=== PATIENT | male | born 1950 | race Caucasian/White ===

== ENCOUNTER → 2018-07-10 10:48 | Outpatient (CLI) | payer MEDICARE, SELFPAY ==
[2018-07-10 11:09] LABS: Absolute Lymphocyte Count 1.06 X10^3/ul (0.83-4.51); Absolute Neutrophil Count 4.6 X10^3/uL (2.0-7.7); Basophil# 0.02 X10^3/uL; Basophil% 0.3 % (0-1); Eosinophil# 0.13 X10^3/uL; Eosinophils% 2.1 % (0-5); Hematocrit 47.1 % (40-54); Hemoglobin 16.2 g/dl (13.0-16.5); Lymphocyte # 1.06 X10^3/ul (4.0); Lymphocyte % 16.9 % (19-41); Mean Corp Hgb Conc 34.4 g/gl (32-36); Mean Corpuscular Hgb 30.5 pg (27.0-32.0); Mean Corpuscular Volume 88.5 fL (80-94); Monocyte# 0.51 X10^3/uL; Monocyte% 8.1 % (0-10); Neutrophil # 4.56 X10^3/uL (2.7-7.7); Neutrophil % 72.4 % (47-70); Platelet Count 184 K/mm3 (150-450); RBC Distribution Width CV 13.3 % (11.6-14.6); Red Blood Count 5.32 M/mm3 (4.6-6.2); White Blood Count 6.3 K/mm3 (4.4-11.0)
[2018-07-10 11:10] LABS: POSITIVE COUNT NO; POSITIVE DIFFERENTIAL NO; POSITIVE MORPHOLOGY NO
[2018-07-12 16:12] LABS: Alternaria alternata <0.10 kU/L (Class 0); Bermuda Grass 0.14 kU/L (Class 0/I); Cat Hair/Dander, Standard <0.10 kU/L (Class 0); D farinae Mite <0.10 kU/L (Class 0); D pteronyssinus <0.10 kU/L (Class 0); Dog Epithelia <0.10 kU/L (Class 0); Elm, American White 0.13 kU/L (Class 0/I); Oak, White 0.12 kU/L (Class 0/I); Plantain, English 0.16 kU/L (Class 0/I); Ragweed, Short/Common 0.12 kU/L (Class 0/I)
[2018-07-13 10:45] LABS: Immunoglobulin E 68 IU/mL (0-100)
[2018-07-13 11:18] LABS: Mouse Urine <0.10 kU/L (Class 0)
== END ==
PROVIDERS: Family Provider Family Medicine; PCP Family Medicine; Visit Provider Nurse Practitioner Acute Care
DX: E78.5 Hyperlipidemia, unspecified (principal); J45.40 Moderate persistent asthma, uncomplicated
CPT/HCPCS: 36415; 82785; 85025; 86003

== ENCOUNTER → 2020-02-08 08:10 | Outpatient (CLI) | payer MEDICARE, SELFPAY ==
[2019-12-12 07:08] VITALS: BMI 25.0
[2020-02-08 09:00] LABS: AST(SGOT) 22 U/L (15-37); Alanine Aminotransfer ALT/SGPT 31 U/L (16-61); Albumin, Serum 3.8 g/dL (3.2-5.0); Alkaline Phosphatase 100 U/L (45-117); Bilirubin, Direct 0.23 mg/dL (0.00-0.30); Cholesterol 208 mg/dL (200); Globulin 3.7 g/dL (2.2-4.2); High Density Lipoprotein 51 mg/dL; Protein, Total 7.5 g/dL (6.4-8.2); Triglycerides 118 mg/dL; Very Low Density Lipoprotein 24 mg/dL (5-40)
== END ==
PROVIDERS: PCP Family Medicine; Referring Provider Internal Medicine Cardiovascular Disease; Visit Provider Internal Medicine Cardiovascular Disease
DX: E78.5 Hyperlipidemia, unspecified (principal)
CPT/HCPCS: 36415; 80061; 80076

== ENCOUNTER 2020-12-21 03:51 | Emergency (ER) | payer MEDICARE, SELFPAY ==
[2020-08-19 08:54] VITALS: BMI 25.7
[2020-12-21 03:53] VITALS: BP 153/107; PULSE 75; RESP 16; TEMP 36.3; O2SAT 98; BMI 26.2
--- NOTE | 2020-12-21 03:55 | ED.RN ---
CALLED FOR EKG PER RN REQUEST, PULLED OLD EKGS FOR
--- NOTE | 2020-12-21 04:07 | EKG12_ITS ---
Test Reason : CP Blood Pressure : / mmHG Vent. Rate : 071 BPM Atrial Rate : 071 BPM P-R Int : 168 ms QRS Dur : 118 ms QT Int : 402 ms P-R-T Axes : 026 -70 057 degrees QTc Int : 436 ms Normal sinus rhythm Left axis deviation Incomplete left bundle branch block Abnormal ECG Confirmed by VIMAL LAWSON, SVETLANA ([id number]), dictionary editor TARYN CUELLO ([id number]) on 12/23/2020 10:37:11 AM Referred By: MAGGIE Confirmed By:SVETLANA CELIS MD
--- NOTE | 2020-12-21 04:07 | ED.DCSUM_ITS ---
History of Present Illness Chief Complaint: Chest Pain Informant: Patient Narrative: Presents with left-sided chest discomfort. He stated approximately 2 days ago he had a jolt of left-sided sharp chest pain. It lasted just for second and went away. He has felt slightly weak since. He was laying in bed tonight and worried about this therefore came in for further evaluation. In 2017 he was evaluated for shortness of breath in our emergency department. He was admitted to the hospital and had a negative stress test and lab work. There is no evidence of heart related disease. He stated he does have asthma. 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 Has a history of high blood pressure. He stated he has borderline high cholesterol. He smoked cigarettes for 5 years when he was in college otherwise has not smoked since. He does not have any discomfort at this time. He can pinpoint the left side of his chest wall where if he pushes on it it is sore. No PE risk factors. - Past Medical History (1) Sinus congestion Status: Acute (2) Asthma, moderate persistent Status: Chronic (3) Dyspnea on exertion Status: Chronic (4) [place]' lung disease Status: Chronic Comment: in the (5) Hyperlipidemia Status: Chronic (6) Hypertension Status: Chronic (7) Left inguinal hernia Status: Chronic (8) Shortness of breath Status: Chronic (9) Asthma Status: Suspected Past Medical History - Allergies and Home Meds Allergies/Adverse Reactions: Allergies ampicillin Allergy (Mild, Verified 12/21/20 03:58) erythromycin base Allergy (Mild, Verified 12/21/20 03:58) montelukast [From Singulair] Adverse Reaction (Verified 12/21/20 03:58) nightmares Primary Care Physician: Sim Weir MD [Primary Care Provider] - Prior records reviewed: Yes Past Medical History: - - See problem list Surgical History: no surgical history Lives: With Family Smoking Status: Former smoker Alcohol: None Drugs: None - Family History Paternal Family History: Family History (Last Reviewed 06/12/20 @ 07:52 by Meka Jang LIEUTENANT GENERAL, LIE[employer]ENANT GENERAL-C) Father CAD (coronary artery disease) Myocardial infarction, Onset Age: 65 Mother COPD (chronic obstructive pulmonary disease) Uncle Sudden cardiac Family History: Reports: Heart Disease - in his father and uncle Maternal Family History: Family History (Last Reviewed 06/12/20 @ 07:52 by Meka Jang [employer]NT [employer]AL, LIE[employer]ENANT GENERAL-C) Father CAD (coronary artery disease) Myocardial infarction, Onset Age: 65 Mother COPD (chronic obstructive pulmonary disease) Uncle Sudden cardiac Family History: Reports: COPD Review of Systems General: Denies: Chills, Fever, Sweats Eyes: Denies: Visual changes - bilaterally, Diplopia ENT: Denies: Rhinorrhea, Sore throat Cardiovascular: Reports: Chest pain. Denies: Palpitations Respiratory: Denies: Dyspnea, Cough, Dyspnea on exertion Gastrointestinal: Denies: Abdominal pain, Nausea, Vomiting, Diarrhea, Melena, Hematochezia Genitourinary: Denies: Dysuria, Hematuria, Frequency Musculoskeletal: Denies: Back pain, Extremity Pain Skin: Denies: Rash, Wounds Neurological: Denies: Headache, Weakness, Numbness Physical Exam Vital Signs/Narrative: Vital Signs Temp Pulse Resp BP Pulse Ox 12/21/20 03:53 97.4 F L 75 16 153/107 H 98 General: Well nourished, Well developed, No Acute Distress Head: Normocephalic, Atraumatic Eyes: Perrl, EOMI ENT: Moist mucous membranes, No rhinorrhea Neck: Supple, Nontender Cardiovascular: Regular rate, Regular rhythm, No murmurs Respiratory: No distress, CTA bilaterally, Chest nontender Abdomen: Soft, Nontender, Nondistended, Normal bowel sounds Back: Nontender, Normal Inspection Extremities: Nontender, No edema Skin: Normal color, No rash Neurological: Alert, Oriented x3, Cranial nerves II-XII grossly intact, Normal Strength, Normal Sensation Psychological: Normal affect, Normal Mood Diagnostic/Tx/Re-eval - Medical Decision Making Patient resting comfortably. EKG reviewed by myself shows sinus rhythm at a rate of 71 with incomplete left bundle branch block. Unchanged from prior EKGs. No STEMI. At this time the patient has no symptoms. Lab work and chest x-ray obtained. I will hold aspirin at this time. Lab work shows nothing acute including negative troponin. CBC BMP showed no gross significant abnormalities. My interpretation of the chest x-ray shows chronic changes with nothing acute. Radiologist agrees with this interpretation.. I can reproduce pinpoint discomfort in the left chest. He has had this discomfort for several days now with a negative troponin. I offered admission and stress test for the patient he refuses. 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 He will also follow-up with his family doctor. I think this is most likely musculoskeletal. He had a jolt of pain in his left chest followed by pinpoint discomfort. He worked all day yesterday with minimal symptoms. I feel he can follow-up. heart score is 3 which puts him in the low risk category. ED Disposition - Plan for ED Patient: Disposition: Home or Assisted Living Diagnosis: Chest pain at rest Instructions: ED Chest Pain, Uncertain Cause Referrals: Sim Weir MD [Primary Care Provider] -
[2020-12-21 04:15] LABS: Absolute Lymphocyte Count 1.29 X10^3/uL (0.83-4.51); Absolute Neutrophil Count 3.7 X10^3/uL (2.0-7.7); Basophil# 0.04 X10^3/uL; Basophil% 0.7 % (0-1); Eosinophil# 0.14 X10^3/uL; Eosinophils% 2.4 % (0-5); Hematocrit 50.7 % (40-54); Lymphocyte # 1.29 X10^3/ul (4.0); Lymphocyte % 22.3 % (19-41); Mean Corp Hgb Conc 33.5 g/dL (32-36); Mean Corpuscular Hgb 30.2 pg (27.0-32.0); Mean Corpuscular Volume 90.1 fL (80-94); Mean Platelet Vol. 8.7 fl (6.2-12.0); Monocyte# 0.61 X10^3/uL; Monocyte% 10.6 % (0-10); NRBC Flagged by Analyzer 0 % (0-5); Neutrophil # 3.68 X10^3/uL (2.7-7.7); Neutrophil % 63.7 % (47-70); Platelet Count 214 K/mm3 (150-450); RBC Distribution Width CV 12.8 % (11.6-14.6); RBC Distribution Width SD 41.9 fl (35.1-43.9); Red Blood Count 5.63 M/mm3 (4.6-6.2); White Blood Count 5.8 K/mm3 (4.4-11.0)
--- NOTE | 2020-12-21 04:15 | RAD_ITS ---
HISTORY: left sided chest pain started 2 days ago. EXAM: XR Chest 1 View COMPARISON: August 23, 2017 FINDINGS: LINES/DEVICES: None. LUNGS: There are chronic interstitial changes. No pneumothorax. No consolidation or effusion. MEDIASTINUM AND CARDIOVASCULAR STRUCTURES: Cardiac silhouette not enlarged. Central airways and mediastinal contour are unremarkable. Athersclerotic plaque within the aortic arch. BONES AND SOFT TISSUES: Thoracic spondylosis. RAD/Chest 1 View (Portable) IMPRESSION: Chronic interestitial changes. No radiographic evidence of acute cardiopulmonary disease. at [id number] Reported and signed by: Ashu Mercer MD Electronically Signed: Ashu Mercer MD at 4:28 EST Tel , Service support ,
[2020-12-21 04:32] LABS: Anion Gap 3 (5-15); BUN 24 mg/dL (7-18); BUN/Creat Ratio 20.5 RATIO (10-20); Calcium,Total 8.5 mg/dL (8.5-10.1); Chloride 109 mmol/L (98-107); Creatinine, Serum 1.17 mg/dL (0.70-1.30); EST Glomerular Filtration Rate 65 mL/min (>60); Est Glom Filt Rate - Afr Amer 79 mL/min (>60); Glucose 101 mg/dL (74-106); Potassium 3.9 mmol/L (3.5-5.1); Sodium Level 140 mmol/L (136-145)
[2020-12-21 05:03] VITALS: BP 161/95; PULSE 69; RESP 19; O2SAT 97
== END 2020-12-21 05:17 | disposition home or self-care (01) ==
PROVIDERS: Emergency Provider Emergency Medicine; PCP Family Medicine
DX: R07.89 Other chest pain (principal); I44.7 Left bundle-branch block, unspecified; I10 Essential (primary) hypertension; J45.40 Moderate persistent asthma, uncomplicated; Z79.899 Other long term (current) drug therapy; Z87.891 Personal history of nicotine dependence
CPT/HCPCS: 71045; 80048; 84484; 85025; 93005; 99284; A4216

== ENCOUNTER → 2021-02-06 07:03 | Outpatient (CLI) | payer MEDICARE, SELFPAY ==
[2021-02-06 10:37] LABS: AST(SGOT) 17 U/L (15-37); Alanine Aminotransfer ALT/SGPT 29 U/L (16-61); Albumin, Serum 3.8 g/dL (3.2-5.0); Alkaline Phosphatase 97 U/L (45-117); Bilirubin, Direct 0.23 mg/dL (0.00-0.30); Cholesterol 214 mg/dL (200); Globulin 3.5 g/dL (2.2-4.2); High Density Lipoprotein 51 mg/dL; Protein, Total 7.3 g/dL (6.4-8.2); Triglycerides 111 mg/dL; Very Low Density Lipoprotein 22 mg/dL (5-40)
== END ==
PROVIDERS: PCP Family Medicine; Referring Provider Internal Medicine Cardiovascular Disease; Visit Provider Internal Medicine Cardiovascular Disease
DX: E78.5 Hyperlipidemia, unspecified (principal)
CPT/HCPCS: 36415; 80061; 80076

== ENCOUNTER → 2021-02-11 11:36 | Outpatient (CLI) | payer MEDICARE, SELFPAY ==
[2021-02-11 10:56] VITALS: BMI 25.2
[2021-02-11 13:13] LABS: BNP,B-Type NATRIURETIC PEPTIDE 9.9 pg/mL (0-100)
== END ==
PROVIDERS: PCP Family Medicine; Referring Provider Internal Medicine Cardiovascular Disease; Visit Provider Internal Medicine Cardiovascular Disease
DX: R06.09 Other forms of dyspnea (principal)
CPT/HCPCS: 36415; 83880

== ENCOUNTER → 2021-02-19 06:58 | Outpatient (CLI) | payer MEDICARE, SELFPAY ==
[2021-02-11 10:56] VITALS: BMI 25.2
--- NOTE | 2021-02-19 07:02 | ECHOCS_ITS ---
Reason For Study: DYSPNEA/SOB Procedure This was a 2D Doppler, Color Flow transthoracic echocardiogram. The study was technically difficult. Exam performed in department. Left Ventricle Normal LV size. The estimated ejection fraction is 55 %. Stage 1 diastolic dysfunction. No regional wall motion abnormalities noted. Right Ventricle Normal RV size. Normal systolic function. Atria Normal left atrium. Normal right atrium. Mitral Valve Normal mitral valve. Tricuspid Valve Normal tricuspid valve. Mild (1+) tricuspid valve insufficiency. Pulmonary artery systolic pressure is 24 mmHg. Aortic Valve Trisinus/trileaflet aortic valve. Pulmonic Valve Normal pulmonic valve. Great Vessels Normal aortic root. Pericardium/Pleural No pericardial effusion. Medication Diluted definity 5ml given slow IV push to enhance endocardial definition. MMode/2D Measurements & Calculations LVIDd: 4.2 cm IVSd: 0.98 cm Ao root diam: 3.6 cm LVIDs: 2.8 cm LVPWd: 0.98 cm RVDd: 3.7 cm FS: 33.1 % LAV(MOD-bp): 17.1 ml LVAd ap4: 26.5 cm2 SV(MOD-sp4): 49.7 ml LAV(MOD-bp) Indexed: 8.1 ml/m2 EDV(MOD-sp4): 81.8 ml LAV(MOD-sp2): 15.7 ml EDV(sp4-el): 85.2 ml LAV(MOD-sp4): 14.0 ml LVAs ap4: 15.0 cm2 ESV(MOD-sp4): 32.1 ml ESV(sp4-el): 32.9 ml EF(MOD-sp4): 60.7 % EF(sp4-el): 61.4 % SV(sp4-el): 52.3 ml LA A4 area: 9.4 cm2 LA dimension(2D): 3.0 cm RA A4 area: 19.0 cm2 Time Measurements MV dec time: 0.23 sec Doppler Measurements & Calculations MV E max yfn: 35.6 cm/sec Lat Peak E' Yfn: 9.7 cm/sec Med Peak E' Yfn: 7.8 cm/sec MV A max yfn: 46.0 cm/sec E/E' lat: 3.7 E/E' med: 4.6 MV E/A: 0.77 Ao V2 max: 85.2 cm/sec LV V1 max: 92.6 cm/sec PA V2 max: 124.5 cm/sec Ao max P.9 mmHg LV V1 max P.4 mmHg TR max yfn: 226.6 cm/sec TR max P.5 mmHg Interpretation Summary Normal LV size. The estimated ejection fraction is 55 %. Stage 1 diastolic dysfunction. Contrast injection was performed. Ordering Physician: Buster Ochoa Referring Physician: CARLOS ALMONTE Performed By: Tana Mendoza RDCS
--- NOTE | 2021-02-19 17:17 | STRESSREP ---
Stress Test Report Exercise myocardial perfusion stress test. 70-year-old man with a history of dyspnea on exertion and chest burning. Stress protocol: Resting EKG demonstrates normal sinus rhythm with a rate of 64 bpm right bundle branch block is noted resting blood pressure is 1 and 28/90 4 mmHg. The patient exercised according to the regular Too protocol for a total duration of 7 minutes and 30 seconds. Patient completed 1 minute and 30 seconds into stage III of the Too protocol the maximum heart rate attained was 162 bpm which was 100.9% of maximum predicted heart rate the maximum workload was 9.3 metabolic equivalents. At rest there were no ST or T wave changes noted to suggest ischemia and at peak exercise upsloping ST changes were noted which did not meet the criteria for ischemia. Occasional premature ventricular complex was noted. The patient experienced mild chest burning throughout the test with mild to moderate dyspnea. Myocardial perfusion protocol. 13.5 mCi of technetium 99m sestamibi was injected at rest. The patient exercised according to regular Too protocol and at peak exercise 43.3 mCi of technetium 99m sestamibi was injected stress images were obtained stress and rest images were reconstructed and compared in the short axis vertical long and horizontal long axis. Gated images were also noted. Perfusion SPECT analysis: Review of the stress images demonstrate normal uptake of tracer noted in all areas of the myocardium, the resting images similar demonstrate normal uptake of tracer noted in all areas of the myocardium. No obvious areas of reversibility are noted to suggest ischemia at this workload. No previous infarct is noted. Gated SPECT analysis: The gated ejection fraction is 48%. Conclusion: Exercise myocardial perfusion stress test with no obvious ischemia noted. Chest burning suggestive of angina with exertion. Mild reduction in left ventricular function.
== END ==
PROVIDERS: PCP Family Medicine; Referring Provider Internal Medicine Cardiovascular Disease; Visit Provider Internal Medicine Cardiovascular Disease
DX: R06.00 Dyspnea, unspecified (principal); R07.89 Other chest pain
CPT/HCPCS: 78452; 93017; 93306; A9500; Q9957; A4216; C8929

== ENCOUNTER 2021-02-27 06:38 | Day surgery (SDC) | payer MEDICARE, SELFPAY ==
[2021-02-11 10:56] VITALS: BMI 25.2
[2021-02-25 12:39] LABS: Absolute Lymphocyte Count 0.86 X10^3/uL (0.83-4.51); Absolute Neutrophil Count 3.6 X10^3/uL (2.0-7.7); Basophil# 0.04 X10^3/uL; Basophil% 0.8 % (0-1); Eosinophil# 0.13 X10^3/uL; Eosinophils% 2.5 % (0-5); Hematocrit 50.5 % (40-54); Hemoglobin 16.5 g/dL (13.0-16.5); Lymphocyte # 0.86 X10^3/ul (4.0); Lymphocyte % 16.4 % (19-41); Mean Corp Hgb Conc 32.7 g/dL (32-36); Mean Corpuscular Hgb 29.7 pg (27.0-32.0); Mean Corpuscular Volume 90.8 fL (80-94); Mean Platelet Vol. 9.3 fl (6.2-12.0); Monocyte# 0.61 X10^3/uL; Monocyte% 11.7 % (0-10); NRBC Flagged by Analyzer 0 % (0-5); Neutrophil # 3.57 X10^3/uL (2.7-7.7); Neutrophil % 68.2 % (47-70); Platelet Count 202 K/mm3 (150-450); RBC Distribution Width CV 13.2 % (11.6-14.6); RBC Distribution Width SD 43.7 fl (35.1-43.9); Red Blood Count 5.56 M/mm3 (4.6-6.2); White Blood Count 5.2 K/mm3 (4.4-11.0)
[2021-02-25 13:05] LABS: Anion Gap 3 (5-15); BUN 18 mg/dL (7-18); BUN/Creat Ratio 18.1 RATIO (10-20); Chloride 108 mmol/L (98-107); Creatinine, Serum 0.99 mg/dL (0.70-1.30); EST Glomerular Filtration Rate 79 mL/min (>60); Est Glom Filt Rate - Afr Amer 95 mL/min (>60); Glucose 83 mg/dL (74-106); Potassium 4.1 mmol/L (3.5-5.1); Sodium Level 138 mmol/L (136-145)
[2021-02-26 09:12] VITALS: BMI 25.2
[2021-02-27] VITALS (12 sets, daily range): BP systolic 94–135; BP diastolic 65–72; PULSE 60–77; RESP 16–18; TEMP 36.6–36.8; O2SAT 95–99
--- NOTE | 2021-02-27 08:45 | CL.D_ITS ---
Patient Name: MOOSE DORSEY Study Date: 02/27/2021 Performing: Buster Ochoa MD Ht: 72.83 inches 185 cm : 1950 Wt: 191.8 lbs 87 kg Age: 70 Gender: male BSA: 2.11 PROCEDURE(S) PERFORMED [id number]/COR/LV CLINICAL PROFILE AND INDICATIONS Indications: Suspected CAD Heart Failure: None Stress/Imaging Date: 02/19/21ress Test with SPECT MPI: Positive Intermediate Risk CAD Presentations: Unstable angina. CONCLUSIONS Mid LAD stenosis with no significant stenosis in the RCA and LCX RECOMMENDATIONS Referred for immediate PCI DESCRIPTION OF PROCEDURE The patient arrived to the procedure lab. The risks and benefits of the procedure as well as a full d escription of our services here and current unavailability of surgical backup were fully explained to the patient and/or their significant other prior to the catheterization. The Timeout was completed, verifying the correct patient and procedure. The patient's procedural site was prepped and draped in the usual fashion. Local anesthetic was given subcutaneously to right radial region with Lidocaine 2% . Using a modified Seldinger technique, arterial access was obtained via the right radial artery, a 6 Fr sheath was inserted. Left Coronary Artery selective angiography was performed in multiple views u sing a 5 Fr. 4.0 [place] catheter. Right Coronary Artery selective angiography was then performed in mu ltiple views using a 5 Fr. 4.0 [place] catheter. CORONARY ANGIOGRAPHY DOMINANCE: Right Dominant LEFT HEART ASSESSMENT Left Ventricular Ejection Fraction: by Echo 55 % Normal LV wall motion LEFT MAIN: Angiographically normal LEFT ANTERIOR DESCENDING ARTERY: MID LAD: 85 % Stenosis CIRCUMFLEX ARTERY: No significant disease noted RIGHT CORONARY ARTERY: No significant disease noted COMPLICATIONS PROCEDURE MEDICATIONS Fentanyl 50 mcg IV Versed 1 mg IV Versed 1 mg IV Fentanyl 25 mcg IV Oxygen: 2 L/min via nasal cannula Heparin diluted in 23cc Heparinized saline. Patient given 10cc IA of this solution. 02/27/2021 08:05:2 2 Heparin 8200 unit(s) IV 02/27/2021 08:36:25 Verapamil 2.5mg, Ntg 100mcgs, 2000 units of Heparin diluted in 23cc Heparinized saline. Patient give n 10cc IA of this solution. 02/27/2021 08:05:22 SUMMARY OF HEMODYNAMIC DATA Time AIR REST ECG 07:06:13 AO 121/75 (95) SA 08:20:53 Signed By Buster Ochoa MD On 02/27/2021 08:44:35 Buster Ochoa MD
--- NOTE | 2021-02-27 09:30 | EKG12_ITS ---
Test Reason : POST PCI Blood Pressure : / mmHG Vent. Rate : 061 BPM Atrial Rate : 061 BPM P-R Int : 174 ms QRS Dur : 120 ms QT Int : 410 ms P-R-T Axes : 001 -59 036 degrees QTc Int : 412 ms Normal sinus rhythm Left axis deviation Abnormal ECG When compared with ECG of 21-DEC-2020 03:55, No significant change was found Confirmed by AURORA LAWSON, MUKESH ([id number]), science editor TARYN CUELLO ([id number]) on 03/06/2021 3:02:36 PM Referred By: Buster Ochoa Confirmed By:JONY SIMON MD
--- NOTE | 2021-02-27 09:32 | EKG12_ITS ---
Test Reason : CP Blood Pressure : / mmHG Vent. Rate : 075 BPM Atrial Rate : 075 BPM P-R Int : 186 ms QRS Dur : 114 ms QT Int : 388 ms P-R-T Axes : 051 -66 061 degrees QTc Int : 433 ms Normal sinus rhythm Left axis deviation Inferior infarct , age undetermined Abnormal ECG Confirmed by AURORA LAWSON, MUKESH ([id number]), advertising editor TARYN CUELLO ([id number]) on 03/06/2021 2:37:54 PM Referred By: Buster Ochoa Confirmed By:JONY SIMON MD
--- NOTE | 2021-02-27 09:44 | PCI.CARDCATH ---
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 The procedure was guided with IVUS 2. Patient will be treated with aspirin, Brilinta, and Lipitor. He will continue his ASHLEE inhibitor. Procedure Details The risks, benefits, complications, treatment options, and expected outcomes were discussed with the patient. The patient and/or family concurred with the proposed plan, giving informed consent. Patient was brought to the slab conditioner supervisor after IV hydration . Patient was further sedated with IV conscious sedation. Subject was prepped and draped in the usual manner. Using the modified Seldinger access technique, a 6 [place] sheath was placed in the right radial. Standard diagnostic catheters were used. Exchanges were performed over J-wire. At the end of the procedures, all catheters and sheaths were removed and bleeding was stopped with closure device using TR band Findings: Left ventriculogram: Reported in the diagnostic cardiac catheterization Moderate Sedation: Conscious sedation was administered under my supervision with cardiorespiratory monitoring performed by independent and qualified nursing personnel. Medications and dosages are recorded separately in the electronic medical record. Intervention Lesion: Proximal left anterior descending Guiding Catheter used 6 [place] left XB 3.5, Guide Wire used: Run-through, balloon used: Emerge: 2.5x12, stents Used: Synergy: 4.0x16. IVUS was used Procedure in detail: The guidewire had no difficulty passing down the distal left anterior descending. The tight proximal left anterior descending was predilated with the 2.5 balloon at 20 demi. The stent was then deployed at 18 demi. IVUS was then performed. The MSA was 9.6 mm?. The average of the reference proximal and distal area was 13.2 millimeters square. Therefore the MSA was postdilated with a 4.5x8 NC balloon at 18 demi. Post dilatation IVUS showed now the MSA was 11.3 mm?. There was no geographical miss. The stent was well opposed and well expanded. Estimated Blood Loss: Minimal} Complications: None Disposition condition: Stable
--- NOTE | 2021-02-27 10:33 | CRPHASE1_ITS ---
Patient Communication PHII Cardiac Rehab Discussed with Patient:: Yes Guide to Cardiac Rehab Given to Patient:: Yes Cardiac Rehab Facility Choice List Given to Patient:: Yes Choice Program [facility] CR PHII:: Communication Given to CR Programming Manager:: Buster Ochoa Phase II Cardiac Rehab:: Yes Sessions:: 36 sessions - 3 days/wk, 12 weeks Cardiac Rehabilitation Info Cardiac Rehabilitation Program Information: Cardiac Rehabilitation is important for patients like you who are recovering from a heart problem. Cardiac rehabilitation programs are recognized as integral to the continued care of the patient with coronary heart disease. The cardiac rehabilitation program is designed to optimize a patient's physical, psychological, and social functioning. Health home care and home health aides teacher work in cardiac rehabilitation programs and assist you with getting the treatments you need to get stronger and healthier - like exercise, healthy eating habits, and medications. Cardiac rehabilitation has been show to help people with heart problems live longer and have better life enjoyment than people who do not go to cardiac rehabilitation. Please contact the Cardiac Rehabilitation Program at [facility] at in two weeks if you have not heard from them.
--- NOTE | 2021-02-27 10:34 | CRPH1.INST_ITS ---
General Education CAD and cardiac anatomy and function:: Patient communicates acknowledgment, Family communicates acknowledgment Explanation of diagnoses and procedures:: Patient communicates acknowledgment, Family communicates acknowledgment Sign/Symptoms of NM:: Patient communicates acknowledgment, Family communicates acknowledgment Antiplatelet therapy: Patient communicates acknowledgment, Family communicates acknowledgment Proper use of NTG-SL: Patient communicates acknowledgment, Family communicates acknowledgment Emergency procedures and activation of EMS: Patient communicates acknowledgment, Family communicates acknowledgment Compliance of all prescribed medications: Patient communicates acknowledgment, Family communicates acknowledgment Smoking Patient Nicotine/Smoking Risk Factors Are:: Never smoked Dyslipidemia Patient Dyslipidemia Risk Factors Are:: Total Cholesterol, Triglycerides, HDL, LDL Recommendations Include:: Lipid profile not available, Reviewed NCEP/ATP guidelines, Therapeutic Lifestyle Change dietary guidelines Dyslipidemia Response Code:: Patient communicates acknowledgment, Family communicates acknowledgment Overweight/Obesity Patient Overweight/Obesity Risk Factors Are:: BMI Normal [18-25 & < 65 years old] Recommendations Include:: Weight loss of 5-10%, Exercise 5-7 times/week Overweight/Obesity:: Patient communicates acknowledgment, Family communicates acknowledgment Hypertension Recommendations Include:: Maintain BP <130/85, DASH dietary guidelines, Decrease/maintain normal body weight Hypertension:: Patient communicates acknowledgment, Family communicates acknowledgment Heart Disease Patient Heart Disease Risk Factors Are:: Family history of heart disease < 65 years old Recommendations Include:: Educated family members of their risk Heart Disease Response Code:: Patient communicates acknowledgment, Family communicates acknowledgment Diabetes Patient Diabetes Risk Factors Are:: No documented hx of diabetes Sedentary Patient Sedentary Risk Factors Are:: Lack of regular exercise Recommendations Include:: Aerobic exercise 5-7 times/week for 20-30 minutes co ntinuously, Benefits of regular exercise, Discussed home walking program, Monitored Outpatient Cardiac Rehab Sedentary Response Code:: Patient communicates acknowledgment, Family communicates acknowledgment Stress Patient Stress Risk Factors Are:: Patient denies stress as a risk factor
--- NOTE | 2021-02-27 12:25 | PCM.DC.CCA ---
<Estephania Hanson - Last Filed: 02/27/21 12:25> Discharge Diet: Low fat/ Low Cholesterol Lifting Restrictions: 10 pounds and also avoid any pushing or pulling for 3 days after your test. Call your doctor if your incision/area has: Continuous Slow Oozing, Sudden Increased Bleeding, Increased Pain/ Swelling, Increased Redness, Foul Smelling Discharge, Swelling at the incision site Call your doctor if you observe: Fever of 101 or Higher, Shortness of breath, Chest pain Remove Dressing in (days):: 1 Additional Dressing/Incision Instructions:: Keep the dressing (bandage) on until the next morning. You may then shower, but do not take a tub bath for 5 days after your test. It is normal to have some tenderness and discomfort at the puncture site. Sometimes bruising also occurs. However, if pain, numbness, or coldness occurs below the puncture site (in your leg, toes, arms or fingers) call your doctor at once. You may have a small, marble sized knot at the puncture site. This is normal. Do not rub it. It will go away in 4-6 weeks. Bleeding can occur from the area where the puncture was done. Blood may spurt or drip from the site. If blood spurts, apply pressure right away to stop bleeding and call 911. Although rare, bleeding into the tissue (hematoma) can also occur. If this happens, a large, firm area goose egg under the skin will appear. If any of these occur, lie down as flat as you can and have someone apply firm pressure to the cath site with a gauze pad or a clean washcloth for 10-15 minutes. Call 911 or go to the Emergency Department. Additional Instructions: You were started on several new medications: 1: Brilinta: this is to be taken twice a day, it is meant to help keep that stent open. It keeps your blood from clotting. You can not stop this for any reason. If it is too expensive, we can discuss switching this to a new medication at your next office visit 2: Toprol: this is a beta marybeth, it is to help your heart heal after the stent placement. This to to be taken once a day 3: Atorvastatin: this is a cholesterol lowering medication. We will recheck your labs in 6 weeks. At your next office visit we will discuss cardiac rehab Allergies/Adverse Reactions: Allergies montelukast [From Singulair] Adverse Reaction (Verified 02/11/21 10:56) nightmares Medications to take at Discharge albuterol sulfate 90 mcg/actuation aerosol inhaler 2 puff INHALATION Q6H PRN 02/09/18 beclomethasone dipropionate 80 mcg/actuation HFA breath activated aerosol 2 inh INHALATION Q12H #10.6 g 01/02/21 budesonide-formoterol HFA 80 mcg-4.5 mcg/actuation aerosol inhaler 10.2 gm Hfa.Aer.Ad#2 Samples 02/10/21 lisinopril 20 mg tablet 20 mg PO DAILY #90 tab 02/11/21 aspirin 81 mg tablet,delayed release 81 mg PO DAILY 02/19/21 Atorvastatin Calcium [Lipitor] 40 mg PO QHS #30 tablet 02/27/21 Metoprolol Succinate [Toprol Xl] 25 mg PO DAILY #30 tab.er.24h 02/27/21 Ticagrelor [Brilinta] 90 mg PO BID #60 tablet 02/27/21 Albuterol Aerosols [Ventolin Aerosols] 2.5 mg INHALATION Q4H PRN vial.neb. 02/28/21 Aspirin E.C. [Ecotrin] 81 mg PO DAILY@0800 tablet 02/28/21 The following prescriptions were given: Ticagrelor [Brilinta] 90 mg PO BID #60 tablet Transmission Status: Received by [facility] Atorvastatin Calcium [Lipitor] 40 mg PO QHS #30 tablet Transmission Status: Received by [facility] Metoprolol Succinate [Toprol Xl] 25 mg PO DAILY #30 tab.er.24h Transmission Status: Received by [facility] Orders to be completed after discharge: Phase II, Outpatient Cardiac Rehab Location: None Selected Primary Care Physician: Sim Weir MD [Primary Care Provider] - Test Results: Test results from this visit will be discussed in further detail at your follow-up appointment, if applicable. Please Follow Up With: Estephania Hanson PA When: 03/13/2021 at 1130 Cardiac Rehabilitation Info Cardiac Rehabilitation Program Information: Cardiac Rehabilitation is important for patients like you who are recovering from a heart problem. Cardiac rehabilitation programs are recognized as integral to the continued care of the patient with coronary heart disease. The cardiac rehabilitation program is designed to optimize a patient's physical, psychological, and social functioning. Health specialist wound care work in cardiac rehabilitation programs and assist you with getting the treatments you need to get stronger and healthier - like exercise, healthy eating habits, and medications. Cardiac rehabilitation has been show to help people with heart problems live longer and have better life enjoyment than people who do not go to cardiac rehabilitation. Please contact the Cardiac Rehabilitation Program at [facility] at in two weeks if you have not heard from them. <Vega Forman - Last Filed: 02/28/21 10:31> Discharge Diet: 2000 mg Sodium Diet Discharge Activity: Return to Normal Activity Test Results: Test results from this visit will be discussed in further detail at your follow-up appointment, if applicable. Proposed Discharge Date: 02/28/21 Cardiac Rehabilitation Info Cardiac Rehabilitation Program Information: Cardiac Rehabilitation is important for patients like you who are recovering from a heart problem. Cardiac rehabilitation programs are recognized as integral to the continued care of the patient with coronary heart disease. The cardiac rehabilitation program is designed to optimize a patient's physical, psychological, and social functioning. Health specialist wound care work in cardiac rehabilitation programs and assist you with getting the treatments you need to get stronger and healthier - like exercise, healthy eating habits, and medications. Cardiac rehabilitation has been show to help people with heart problems live longer and have better life enjoyment than people who do not go to cardiac rehabilitation. Please contact the Cardiac Rehabilitation Program at [facility] at in two weeks if you have not heard from them.
--- NOTE | 2021-02-27 13:52 | CASEMGMT ---
Pt to be sent home on Brilinta at discharge and med e-scribed to [facility] previously. Call to [facility] and per tech, pt's co-pay is $90 and pt provided with Brilinta one month free card at this time. Virginie LOVETT CM
--- NOTE | 2021-02-27 15:09 | PHA.DC.MC ---
Pharmacy Service has performed discharge medication reconciliation and counseling for this patient. 1. ATORVASTATIN 40MG PO QHS 2. METOPROLOL SUCCINATE 25MG PO DAILY 3. TICAGRELOR 90MG PO BID The patient's discharge medication list was reviewed for discrepancies and discrepancies were resolved. Home Medications albuterol sulfate 90 mcg/actuation aerosol inhaler 2 puff INHALATION Q6H PRN 02/09/18 beclomethasone dipropionate 80 mcg/actuation HFA breath activated aerosol 2 inh INHALATION Q12H #10.6 g 01/02/21 budesonide-formoterol HFA 80 mcg-4.5 mcg/actuation aerosol inhaler 10.2 gm Hfa.Aer.Ad#2 Samples 02/10/21 lisinopril 20 mg tablet 20 mg PO DAILY #90 tab 02/11/21 aspirin 81 mg tablet,delayed release 81 mg PO DAILY 02/19/21 Atorvastatin Calcium [Lipitor] 40 mg PO QHS #30 tablet 02/27/21 Metoprolol Succinate [Toprol Xl] 25 mg PO DAILY #30 tab.er.24h 02/27/21 Ticagrelor [Brilinta] 90 mg PO BID #60 tablet 02/27/21 The patient was counseled on the following discharge medications and changes in medications for homegoing were reviewed. The Reason for Use, instructions for use, and potential side effects were reviewed for all new medications. The patient's questions regarding all of their medications were answered. The patient was able to verbally demonstrate an understanding of their discharge medications.
[2021-02-27] MEDS: Atorvastatin Calcium 40 MG Tablet PO (21:28)
[2021-02-28 03:00] VITALS: PULSE 58
[2021-02-28 03:25] VITALS: BP 109/71; PULSE 63; RESP 16; TEMP 36.6; O2SAT 96
[2021-02-28 05:54] LABS: Hematocrit 44.1 % (40-54); Hemoglobin 14.6 g/dL (13.0-16.5); Mean Corp Hgb Conc 33.1 g/dL (32-36); Mean Corpuscular Hgb 29.7 pg (27.0-32.0); Mean Corpuscular Volume 89.6 fL (80-94); Mean Platelet Vol. 8.8 fl (6.2-12.0); Platelet Count 166 K/mm3 (150-450); RBC Distribution Width CV 13.3 % (11.6-14.6); RBC Distribution Width SD 43.6 fl (35.1-43.9); Red Blood Count 4.92 M/mm3 (4.6-6.2); White Blood Count 5.9 K/mm3 (4.4-11.0)
[2021-02-28 06:26] LABS: ALB/GLOB Ratio 1.1 RATIO (0.9-2.4); AST(SGOT) 15 U/L (15-37); Alanine Aminotransfer ALT/SGPT 21 U/L (16-61); Albumin, Serum 3.1 g/dL (3.2-5.0); Alkaline Phosphatase 89 U/L (45-117); Anion Gap 5 (5-15); BUN 17 mg/dL (7-18); BUN/Creat Ratio 17.5 RATIO (10-20); Calcium,Total 8.6 mg/dL (8.5-10.1); Chloride 109 mmol/L (98-107); Creatinine, Serum 0.97 mg/dL (0.70-1.30); EST Glomerular Filtration Rate 81 mL/min (>60); Est Glom Filt Rate - Afr Amer 98 mL/min (>60); Estimated Creatinine Clearance 77.79 ml/min; Globulin 2.9 g/dL (2.2-4.2); Glucose 99 mg/dL (74-106); Potassium 4.1 mmol/L (3.5-5.1); Sodium Level 140 mmol/L (136-145)
[2021-02-28 07:02] VITALS: PULSE 56
[2021-02-28 07:39] VITALS: O2SAT 96
--- NOTE | 2021-02-28 08:58 | PCM.PN.CARD ---
Subjectve: Patient had stenting of the proximal left anterior descending with IVUS guidance. Patient denies any chest pain. Radial site is stable. Electrolytes is normal. Hemodynamically stable. Patient had the cardiac catheterization for functional class III angina with abnormal stress test Objective: Vital Signs Temp Pulse Resp BP Pulse Ox 97.9 F 56 L 16 109/71 96 02/28/21 03:25 02/28/21 07:02 02/28/21 03:25 02/28/21 03:25 02/28/21 07:39 Oxygen Delivery Method Room Air Weight: 191 lb Body Mass Index (BMI) 25.2 Intake and Output for Last 24 Hours 02/26/21 02/27/21 02/28/21 23:59 23:59 23:59 Intake Total 1310 / 1310 50 / 50 Balance 1310 / 1310 50 / 50 General: Healthy Appearing, No Acute Distress HEENT: Atraumatic Neck: Supple Lungs: Clear to auscultation Cardiovascular: Regular Rhythm, Normal S1, Normal S2, No Murmurs, No Rubs, No Gallops Vascular: Normal Radial Pulses Abdomen: Bowel Sounds Present, Soft, Non Tender, No HSM, No Organomegaly Extremities: No Cyanosis, No Clubbing, No edema Neurological: No Focal Motor or Sensory Deficit Psych/Mental Status: Appropriate, Normal Affect 02/28/21 05:46: WBC 5.9, RBC 4.92, Hgb 14.6, Hct 44.1, MCV 89.6, MCH 29.7, MCHC 33.1, Plt Count 166, MPV 8.8 02/28/21 05:46: Sodium 140, Potassium 4.1, Chloride 109 H, Carbon Dioxide 26.0, Anion Gap 5, BUN 17, Creatinine 0.97, Est GFR (MDRD) Af Amer 98, Est GFR (MDRD) Non-Af 81, BUN/Creatinine Ratio 17.5, Glucose 99, Calcium 8.6, Total Bilirubin 0.60 Rhythm: EKG: ECHO: Stress Test: Cardiac Cath: PCI: CT Surgery: Holter monitor: EPS: PPM: CXR: Chest CT Scan: Medical Necessity - Tobacco Use Smoking Status: Former smoker Assessment/Plan Functional class III angina with abnormal stress test treated with ending of the proximal left anterior descending with no complication. Patient will be sent home on aspirin, Brilinta, ASHLEE inhibitor, low dose b marybeth, and moderate intensity statin. He will be followed by Dr. Ochoa in 1 to 2 weeks
[2021-02-28 09:13] VITALS: BP 128/82; PULSE 69; RESP 14; TEMP 36.6; O2SAT 94
[2021-02-28] MEDS: TICAGRELOR 90 MG TABLET PO (09:17)
[2021-02-28] MEDS: Aspirin E.C. 81 MG Tablet PO (09:17)
--- NOTE | 2021-02-28 09:22 | DS.PCM_ITS ---
Discharge Date and Diagnosis Date of Admission: 07/29/17 - Primary Discharge Diagnosis Acute Problems: Shortness of breath angina equivalent - Secondary Discharge Diagnosis Chronic Problems: Chronic Problems (Last Updated 02/27/21 @ 16:36 by Erma Lundberg) Dyspnea on exertion (Chronic) Atherosclerotic heart disease of [place] coronary artery without angina pectoris (Chronic) History of coronary artery stent placement (Chronic 02/27/21) PCI-MENDOZA-Mid LAD w/ 4.0 x 16 mm Synergy Stent 02/27/21 Incomplete left bundle branch block (Chronic) Essential (primary) hypertension (Chronic) Hyperlipidemia (Chronic) Sinus congestion (Chronic) Asthma, moderate persistent (Chronic) [place]' lung disease (Chronic) in the Hospital Course and Treatment Imaging Results: Cardiac catheterization was performed and showed severe proximal left anterior descending which was treated with stenting using IVUS guidance. Patient tolerated the procedure well and was observed overnight before discharge. Hemodynamically stable. Blood work was normal. Operations: None Procedures: Cardiac catheterization - Stenting of the proximal left anterior descending Summary of Care Provided: The patient is a 70 year old M [] - Physical Exam Vitals/I&O's: Vital Signs Temp Pulse Resp BP Pulse Ox 97.8 F 69 14 128/82 H 94 02/28/21 09:13 02/28/21 09:13 02/28/21 09:13 02/28/21 09:13 02/28/21 09:13 Oxygen Delivery Method Room Air Weight: 191 lb Body Mass Index (BMI) 25.2 Intake and Output for Last 24 Hours 02/26/21 02/27/21 02/28/21 23:59 23:59 23:59 Intake Total 1310 / 1310 50 / 50 Balance 1310 / 1310 50 / 50 General: Alert, Oriented x3 HEENT: Atraumatic Neck: Supple Lungs: Clear to auscultation, Normal air movement Cardiovascular: Regular rate, No murmurs Extremities: No edema, Capillary Refill Less than 3 Seconds, Peripheral Pulses Normal Neurological: Cranial nerves II-XII grossly intact Psych/Mental Status: Normal Affect, Appropriate Laboratory Results 02/28/21 05:46: WBC 5.9, RBC 4.92, Hgb 14.6, Hct 44.1, MCV 89.6, MCH 29.7, MCHC 33.1, RDW Std Deviation 43.6, RDW Coeff of Julisa 13.3, Plt Count 166, MPV 8.8 02/28/21 05:46: Sodium 140, Potassium 4.1, Chloride 109 H, Carbon Dioxide 26.0, Anion Gap 5, BUN 17, Creatinine 0.97, Estim Creat Clear Calc 77.79, Est GFR (MDRD) Af Amer 98, Est GFR (MDRD) Non-Af 81, BUN/Creatinine Ratio 17.5, Glucose 99, Calcium 8.6, Total Bilirubin 0.60, AST 15, ALT 21, Alkaline Phosphatase 89, Total Protein 6.0 L, Albumin 3.1 L, Globulin 2.9, Albumin/Globulin Ratio 1.1 Current Medications Albuterol Sulfate (Albuterol 2.5 Mg/3 Ml Vial.Neb.) 2.5 mg INHALATION Q4H PRN PRN Reason: SOB AND/OR WHEEZING Aspirin (Aspirin E.C. 81 Mg Tablet) 81 mg PO DAILY@0800 [facility] Last Admin: 02/28/21 09:17 Dose: 81 mg Documented by: Atorvastatin Calcium (Atorvastatin Calcium 40 Mg Tablet) 40 mg PO QHS [facility] Last Admin: 02/27/21 21:28 Dose: 40 mg Documented by: Atropine Sulfate (Atropine Sulfate 1 Mg/10 Ml Syringe) 0.5 mg IV UD PRN PRN Reason: HR <50 bpm Heparin Sodium (Beef Lung) (Heparin Lock 500 Unit/5 Ml In 10 Ml Syringe) 500 unit IV UD PRN PRN Reason: HEPARIN FLUSH Sodium Chloride () 250 mls @ 15 mls/hr IV .[id number] PRN PRN Reason: Saline Flush Sodium Chloride () 250 mls @ 15 mls/hr IV .[id number] PRN PRN Reason: Additional IVPB Infusion Labetalol HCl (Labetalol (Prefilled) 20 Mg/4 Ml) 5 mg IV X1 PRN PRN Reason: SBP >160 when pulling sheath Stop: 03/01/21 09:30 Lisinopril (Lisinopril 20 Mg Tablet) 20 mg PO DAILY [facility] Last Admin: 02/28/21 09:17 Dose: Not Given Documented by: Sodium Chloride (0.9% Normal Saline 500 Ml Iv.Soln.) 500 ml IV BOLUS PRN PRN Reason: VASO-VAGAL PROTOCOL Sodium Chloride (0.9% Saline Lock 10 Ml Syringe) 10 - 40 ml IV UD PRN PRN Reason: SALINE FLUSH Ticagrelor (Ticagrelor 90 Mg Tablet) 90 mg PO BID [facility] Last Admin: 02/28/21 09:17 Dose: 90 mg Documented by: Discharge Diet: Low fat/ Low Cholesterol Call your doctor if your incision/area has: Continuous Slow Oozing, Sudden Increased Bleeding, Increased Pain/ Swelling, Increased Redness, Foul Smelling Discharge, Swelling at the incision site Call your doctor if you observe: Fever of 101 or Higher, Shortness of breath, Chest pain Remove Dressing in (days):: 1 Additional Dressing/Incision Instructions:: Keep the dressing (bandage) on until the next morning. You may then shower, but do not take a tub bath for 5 days after your test. It is normal to have some tenderness and discomfort at the puncture site. Sometimes bruising also occurs. However, if pain, numbness, or coldness occurs below the puncture site (in your leg, toes, arms or fingers) call your doctor at once. You may have a small, marble sized knot at the puncture site. This is normal. Do not rub it. It will go away in 4-6 weeks. Bleeding can occur from the area where the puncture was done. Blood may spurt or drip from the site. If blood spurts, apply pressure right away to stop bleeding and call 911. Although rare, bleeding into the tissue (hematoma) can also occur. If this happens, a large, firm area goose egg under the skin will appear. If any of these occur, lie down as flat as you can and have someone apply firm pressure to the cath site with a gauze pad or a clean washcloth for 10-15 minutes. Call 911 or go to the Emergency Department. Home Medications: Medications to take at Discharge albuterol sulfate 90 mcg/actuation aerosol inhaler 2 puff INHALATION Q6H PRN 02/09/18 beclomethasone dipropionate 80 mcg/actuation HFA breath activated aerosol 2 inh INHALATION Q12H #10.6 g 01/02/21 budesonide-formoterol HFA 80 mcg-4.5 mcg/actuation aerosol inhaler 10.2 gm Hfa.Aer.Ad#2 Samples 02/10/21 lisinopril 20 mg tablet 20 mg PO DAILY #90 tab 02/11/21 aspirin 81 mg tablet,delayed release 81 mg PO DAILY 02/19/21 Atorvastatin Calcium [Lipitor] 40 mg PO QHS #30 tablet 02/27/21 Metoprolol Succinate [Toprol Xl] 25 mg PO DAILY #30 tab.er.24h 02/27/21 Ticagrelor [Brilinta] 90 mg PO BID #60 tablet 02/27/21 Following Prescriptions Were Given to Patient: Ticagrelor [Brilinta] 90 mg PO BID #60 tablet Transmission Status: Received by [facility] Atorvastatin Calcium [Lipitor] 40 mg PO QHS #30 tablet Transmission Status: Received by [facility] Metoprolol Succinate [Toprol Xl] 25 mg PO DAILY #30 tab.er.24h Transmission Status: Received by [facility] Other Amb Orders: Phase II, Outpatient Cardiac Rehab Location: None Selected Primary Care Physician: Sim Weir MD [Primary Care Provider] - Please Follow Up With: Estephania Hanson PA When: 03/13/2021 at 1130 Additional Instructions: You were started on several new medications: 1: Brilinta: this is to be taken twice a day, it is meant to help keep that stent open. It keeps your blood from clotting. You can not stop this for any reason. If it is too expensive, we can discuss switching this to a new medication at your next office visit 2: Toprol: this is a beta marybeth, it is to help your heart heal after the stent placement. This to to be taken once a day 3: Atorvastatin: this is a cholesterol lowering medication. We will recheck your labs in 6 weeks. At your next office visit we will discuss cardiac rehab Medical Necessity - Tobacco Use Smoking Status: Former smoker Meaningful Use Info Meaningful Use Diagnoses (Choose all that apply): None applicable
--- NOTE | 2021-02-28 09:30 | EKG12_ITS ---
Test Reason : AM EKG Blood Pressure : / mmHG Vent. Rate : 059 BPM Atrial Rate : 059 BPM P-R Int : 178 ms QRS Dur : 108 ms QT Int : 414 ms P-R-T Axes : 015 -63 016 degrees QTc Int : 409 ms Sinus bradycardia Left axis deviation Inferior infarct , age undetermined Abnormal ECG When compared with ECG of 27-FEB-2021 10:32, MANUAL COMPARISON REQUIRED, DATA IS UNCONFIRMED Confirmed by ANDREIA LAWSON, BUSTER ([id number]), development editor TARYN CUELLO ([id number]) on 03/06/2021 3:07:56 PM Referred By: Buster Boswell Confirmed By:BUSTER BOSWELL MD
== END 2021-02-28 09:32 | disposition home or self-care (01) ==
LOC: CLSP 06:39 → PCU 14:15
PROVIDERS: Internal Medicine Cardiovascular Disease; PCP Family Medicine; Referring Provider Internal Medicine Cardiovascular Disease; Visit Provider Internal Medicine Cardiovascular Disease
DX: I25.10 Atherosclerotic heart disease of native coronary artery without angina pectoris (principal); I44.7 Left bundle-branch block, unspecified; I10 Essential (primary) hypertension; E78.5 Hyperlipidemia, unspecified; J45.40 Moderate persistent asthma, uncomplicated; J67.0 Farmer's lung; Z95.5 Presence of coronary angioplasty implant and graft; Z79.82 Long term (current) use of aspirin; Z79.899 Other long term (current) drug therapy; Z87.891 Personal history of nicotine dependence
CPT/HCPCS: 36415; 80048; 80053; 85025; 85027; 92928; 92978; 93005; 93458; 99152; 99153; J7040; Q9967; C1725; C1753; C1769; C1874; C1887; C1894; C9600

== ENCOUNTER 2021-03-04 14:45 | Emergency (ER) | payer MEDICARE, SELFPAY ==
[2021-03-03 10:02] VITALS: BMI 24.6
[2021-03-04 14:46] VITALS: BP 149/97; PULSE 78; RESP 15; TEMP 36.2; O2SAT 98; BMI 24.7
[2021-03-04 15:25] VITALS: BP 129/90; PULSE 74; RESP 13; O2SAT 97
[2021-03-04 15:27] LABS: Absolute Lymphocyte Count 0.57 X10^3/uL (0.83-4.51); Absolute Neutrophil Count 4.7 X10^3/uL (2.0-7.7); Basophil# 0.04 X10^3/uL; Basophil% 0.7 % (0-1); Eosinophil# 0.04 X10^3/uL; Eosinophils% 0.7 % (0-5); Hematocrit 48.4 % (40-54); Hemoglobin 16.5 g/dL (13.0-16.5); Lymphocyte # 0.57 X10^3/ul (4.0); Lymphocyte % 9.5 % (19-41); Mean Corp Hgb Conc 34.1 g/dL (32-36); Mean Corpuscular Hgb 30.1 pg (27.0-32.0); Mean Corpuscular Volume 88.3 fL (80-94); Mean Platelet Vol. 8.8 fl (6.2-12.0); Monocyte# 0.58 X10^3/uL; Monocyte% 9.7 % (0-10); NRBC Flagged by Analyzer 0 % (0-5); Neutrophil # 4.73 X10^3/uL (2.7-7.7); Neutrophil % 78.9 % (47-70); POSITIVE DIFFERENTIAL YES; Platelet Count 208 K/mm3 (150-450); RBC Distribution Width SD 42.3 fl (35.1-43.9); Red Blood Count 5.48 M/mm3 (4.6-6.2)
--- NOTE | 2021-03-04 15:28 | RAD_ITS ---
STUDY: X-RAY CHEST REASON FOR EXAM: Male, 70 years old. chest pain TECHNIQUE: Single AP portable view of the chest. COMPARISON: None. FINDINGS: The lungs are underexpanded. There is a calcified granuloma in the right lung base measures 6 mm. There is no demonstrated pleural abnormality. Normal size heart. Normal mediastinum and jovani. Normal visualized pulmonary arteries. Normal visualized aortic arch and descending thoracic aorta. Normal visualized thoracic spine. There is degenerative osteoarthritis of the bilateral shoulders. There is no demonstrated abnormality of the visualized soft tissue structures of the upper abdomen. RAD/Chest 1 View (Portable) IMPRESSION: Degenerative changes, as described above. No demonstrated acute cardiopulmonary process. Electronically Signed: Aristides Valdez MD at 15:53 EDT Tel , Service support ,
[2021-03-04 15:29] LABS: Differential Indicated SCAN CRITERIA MET
[2021-03-04] MEDS: Aspirin 81 MG TAB.CHEW 324 MG PO (15:38)
[2021-03-04 15:50] LABS: Anion Gap 6 (5-15); BUN 21 mg/dL (7-18); BUN/Creat Ratio 16.7 RATIO (10-20); Calcium,Total 8.9 mg/dL (8.5-10.1); Chloride 108 mmol/L (98-107); Creatinine, Serum 1.26 mg/dL (0.70-1.30); EST Glomerular Filtration Rate 60 mL/min (>60); Est Glom Filt Rate - Afr Amer 72 mL/min (>60); Estimated Creatinine Clearance 59.89 ml/min; Glucose 106 mg/dL (74-106); Potassium 3.5 mmol/L (3.5-5.1); Sodium Level 138 mmol/L (136-145)
--- NOTE | 2021-03-04 16:00 | ED.VISSUMM ---
- ER Visit Summary Date of Service: 03/04/21 Chief Complaint: Chest pain History of Present Illness: The patient is a [address] Ochoa and Dr. Weir. Patient had a heart catheterization 5 days ago and had a stent placed to his LAD. Reports that he was doing well until 7 PM yesterday when he felt a single palpitation. He has not had any palpitations since that time. Describes this as a heavy beat. Patient reports at approximately 1030 last night he developed a dull left-sided chest pain. Is 4-10 currently and at worst. Nothing makes this worse including exertion. Is not positional. Does not worsen when he lays down or is relieved when he sits forward. Patient actually states it is relieved by walking around. He denies any associated nausea, vomiting, diaphoresis, shortness of breath. Physical Examination: Vitals: Stable. Afebrile. General: Well-nourished and well-developed. Head: Normocephalic atraumatic. Neck: Supple, no lymphadenopathy. No JVD. Nontender. Cardiovascular: Regular rate and rhythm. No murmurs. Respiratory: No respiratory distress. Clear to auscultation bilaterally. Abdominal: Soft, nontender, nondistended, normal bowel sounds. No guarding, rebound, or peritoneal signs. Back: Nontender. Extremities: Nontender, no edema. Contusion medial right wrist from the heart cath. He has a 2+ radial pulse. Skin: Normal color, no rash. Neurologic: Alert and oriented ?3. Cranial nerves II through XII are intact. Normal strength and sensation. Psych: Normal affect. Test Results: EKG is sinus at 75 with inferior Q waves. Is unchanged from February 28. Troponin is negative. Chem-7 shows a chloride of 108 and BUN of 21. CBC shows segmented for 79 lymphocytes of 10. Clinical Impression(s) from Imaging Studies Chest X-Ray 03/04/21 15:28 IMPRESSION: Degenerative changes, as described above. No demonstrated acute cardiopulmonary process. Electronically Signed: Aristides Valdez MD at 15:53 EDT Tel , Service support , Emergency Department Course and Treatment: Patient was given aspirin here. He is resting comfortably. He was reassured. Treatment Plan: Patient was discussed with Dr. Ochoa. He is instructed to begin cardiac rehab tomorrow as previously scheduled. Follow-up as previously scheduled. Return to the emergency department for any worsening symptoms. Disposition: To home in improved and stable condition. Impression: 1. Chest pain. 2. 5 days status post LAD stent. This note was generated with [employer] dictation software. It may contain incorrect words, spelling, and punctuation that were not noted in review of the chart prior to signing ED Disposition - Plan for ED Patient: Instructions: ED Chest Pain, Uncertain Cause Referrals: Buster Ochoa MD [STAFF PHYSICIAN] - Keep Janusz appointment
[2021-03-04 16:30] VITALS: BP 131/92; PULSE 74; RESP 12; O2SAT 96
[2021-03-05 14:25] LABS: Pathologist Review Reviewed
== END 2021-03-04 16:33 | disposition home or self-care (01) ==
PROVIDERS: Emergency Provider Emergency Medicine; PCP Family Medicine
DX: R07.89 Other chest pain (principal); Z95.5 Presence of coronary angioplasty implant and graft; I10 Essential (primary) hypertension; I25.10 Atherosclerotic heart disease of native coronary artery without angina pectoris; J45.909 Unspecified asthma, uncomplicated; E78.00 Pure hypercholesterolemia, unspecified; Z79.82 Long term (current) use of aspirin; Z79.899 Other long term (current) drug therapy
CPT/HCPCS: 71045; 80048; 84484; 85025; 93005; 99285; A4216

== ENCOUNTER → 2021-03-05 09:43 | Outpatient (CLI) | payer MEDICARE, SELFPAY ==
[2021-02-26 09:12] VITALS: BMI 25.2
[2021-03-04 14:46] VITALS: BMI 24.7
--- NOTE | 2021-03-05 09:47 | CR.ITP_ITS ---
Diagnosis - General Information Admitting Diagnosis: PCI w/coronary stenting Personal Learning Style:: Audio/Visual, Written Barriers to Learning: Hearing Impairment, Vision Impairment Stage of change r/t lifestyle modifications:: Action Gave educational material for:: Treating Heart Disease, Emotions & Heart Disease, Stress Management & Relaxation, Sleep Disorders & Heart Disease, How The Heart Works, What it means to have Heart Disease, How Coronary Artery Disease is Diagnosed, Heart Procedures, What Heart Medications Do, Risk Factors & Modifications, Living an Active Life, Nutrition - Education/Goals Individual Counseling: Initial Assessment: Abnormal Cholesterol Levels, High Blood Pressure Cardiac Rehabilitation Goals: 1. Maintain the individual as the primary focus of care. 2. To improve the patient's quality of life. 3. Identification of cardiac risk factors and provide cardiac risk factor management. 4. Enhance the psychosocial status of the patient. 5. Reconditioning enough to allow the patient to resume customary activities. 6. Control symptoms of cardiac disease Personal Goals: Initial Assessment: Improve management of stress and emotions, Improve energy level, Get back to work, or to resume activities faster, Improve knowledge of cardiac disease, Improve muscle strength and endurance, Control ri sk factors (learn risk factor modification) Scale for measuring improvement of personal goals: Enter appropriate number in Comments. 2 = Unchanged. 3 = Slightly Better. 4 = Moderate Improvement. 5 = Met my Goal - Diagnosis & Disease Process Outcomes/Goals: Pt IDs own risk factors & lifestyle modifications by Session 10, Verbalizes symptoms of angina & response by session 3., Pt independently manages Plan/Interventions: Assist Pt to ID & engage in lifestyle modification to reduce CVD risk, Instruct on individual risk factors, Review symptoms of angina & emergency actions, Review secondary diagnosis & identify educational needs. - Safety Referral to Physical Therapy: No Referral to [facility] Case Management: No Fall Risk Assessed:: Yes Assistive Devices:: None Exercise - Initial Assessment - Visit Date of Eval: 03/05/21 Session #:: 0 - Pre-cardiac rehab evaluation Mets: Pre-: >7 METS for 30 minutes by discharge - Physician Prescribed Exercise Modalities: Treadmill, Rower, Airdyne, NuStep Frequency: 3x/week for 12 weeks [36 sessions] Intensity: 60-80% of age predicted maximum heart rate reserve Current METSs:: 3.0 Target Heart Rate:: 96-125 Resting Blood Pressure: 128/82 EKG Type: NSR w/ incomplete LBBB - Outcomes & Goals Goals:: Verbalizes understanding of THR, RPE & goal METS by session 6, Documents in home exercise log/reports 30 min aerobic 5 day/wk by DC, Demonstrates accurate pulse taking by DC - Intervention & Plan Exercise Program Goals: Instruct on personal THR & RPE, Instruct on MET level & personal MET goal, Instruct on home exercise - Physical Activity Home Exercise Physical Activity - Home Exercise: Safe Exercise, Warm-up, Self-monitoring, Cool-Down, Home Exercise > 30 min Daily, Sitting Time <3 hours/daily - Outcomes & Goals Outcomes/Goals: Demonstrates correct Warm-up/exercise Cool-Down (S3) if = 2.5 METs, Verbalizes symptoms of exercise intolerance by Session 3 (S3), Demonstrate safe equipment use (S3) & follows exercise prescrition (6) - Intervention & Plan Plan/Intervention: Instruct warm-up & cool-down if exercising at > 2 METs, Instruct on symptoms of exercise intolerance & actions to take, Instruct & monitor on saf, Assess intial functional capacity & safety risk Nutrition - Initial Assessment - Program Goals Nutrition Program Goals: LDL <100 optimal. 100 - 129 Near optimal. 130 - 159 Borderline High. 160 - 189 High. Total Cholesterol <200 desirable. 200 - 239 Borderline High. >/= 240 High. HDL < 40 Low >/=60 High. Triglycerides <150 desirable. <199 optimal. VlDL 5 - 40. HgbA1C <7%. BMI <25 Patient has diagnosis of Hyperlipidemia (ICD E78)?: Yes - Visit Date of Assessment:: 03/05/21 Session #:: 0 - Pre-cardiac rehab evaluation - Cholesterol/Lipids Triglycerides (mg/dL): 111 - 02/06/21 Total Cholesterol (mg/dL): 214 LDL Cholesterol (mg/dL): 141 HDL Cholesterol (mg/dL): 51 Determine presence & major risk factors that modify LDL goal: Hypertension or hypertensive medication, Family history of premature CHD in Male < 55 years: female <65 yearsFa, Age men > 45 years; women >/= 55 years Outcomes/Goals: Pt IDs own risk factors & lifestyle modifications by Session 10, Verbalizes symptoms of angina & response by session 3., Pt independently manages Intervention/Plan: Instruct on personal lipid levels & lipid goals/NCEP guidelines, Instruct on cholesterol Referral to dietitian:: Yes - Medical Nutrition Therapy - Diabetes (Other Core Measures) Diabetes Type: Not Applicable - Weight Mgt (Other Care) Not Applicable: Yes Height: 6 ft 1 in Weight:: 191 lb BMI: 25.2 Diagnosis Overweight/Obesity BMI> 30% ICD-10 E66: No Diagnosis High BMI/Morbid Obesity BMI> 35% ICD-10 Z68: No Outcomes/Goals: Pt sets, maintains & shows weight loss goal & trend during rehab Intervention/Plan: Instruct on ideal BMI & set weight loss goal w/patient - Healthy Eating Habits Will attend diet classes:: Yes Outcomes/Goals:: Consume diet rich in vegs,fruits,whole grain/high fiber,fish,lean meat, Limit sat/trans fats,cholesterol & added salts & sugars Intervention/Plan:: Assess current eating habits Medical - Initial Assessment - Visit Date of Eval: 03/05/21 Session #:: 0 - pre-cardiac rehab evaluation - Medication Compliance Preventative Medication(s):: Aspirin, Statin/lipid, Beta marybeth H/O mental health issues: depression, anxiety, or addiction?: Yes Doesn?t believe in the benefits of treatment?: No Believes medications are unnecessary or harmful?: No Has a concern about medication side effects?: No Expresses concern over the cost of medications?: No Outcomes/Goals: Verbalizes medications,desired effect & common side effects @ DC, Pt self-reports following medication regimen, Keeps card in wallet w/medications listed by DC Interventions/plans: Instruct on medication effects & side effects, Review medication list w/patient every two weeks, Instruct importance of taking meds as ordered & assist problem solving - Tobacco Use Tobacco Use: Non-smoker - Hypertension Hypertension Diagnosis:: Hypertension ICD-10 I10 Resting Blood Pressure:: 128/82 [place] [employer] Hypertension Guidelines: [place] [employer] Hypertension Guidelines. Normal BP Less than 120/80. Elevated BP 120/80. Hypertension Stage 1: BP 130-139/80-89. Hypertesnion Stage 2: BP 140 or higher/90 or higher. Hypertension Crisis: BP higher than 180/120 Outcomes/Goals: Able to verbalize/achieve optimal blood pressure <130/80, Incorporates diet changes & exercise for blood pressure control by DC Interventions/plan: Instruct on optimal blood pressure, hypertension & medications, Instruct on effects of sodium, alcohol, stress, exercise &hypertension - Tobacco Cessation Referral Smoking Cessation Referral:: No Individual Education/Counseling:: No Education Schedule Given:: Yes Psychosocial - Initial Assess - VIsit Date of Eval: 03/05/21 Session #:: 0 - Pre-cardiac rehab evaluation Not Applicable: No History of previous Mental disease:: Yes History of Emotional Disorders: Anxious, Depression - Target Goals Target Goals: Assess presence or absence of depression. Using a valid screening tool, maximizes coping skills. Positive support system - Psychosocial Test Tool Used:: Max [place] QOL Cardiac, PHQ-9 Questionnaire phq-9 Severity: Severity. 1-4 Minimal Depression. 5-9 Mild Depression. 10-14 Moderate Depression. 15-19 Moderately Sever Depression. 20-27 Severe Depression. Rule: - Referral to Behavioral Health PS - Interventions: Yes Referral to Physician if PHQ-9 if score is 5-9: - PHQ-9 score 19 indicating MOderate Severe Depression, No Referral to Behavioral Health if PHQ-9 score >9:, No Referral to [facility] - Outcomes/Goals: See list Psychosocial Outcomes/Goals:: ID's personal stressors & 2 strategies to manage stress by discharge - Intervention/Plan: See List Interventions/Plan:: Assess stressors,coping strategies & signs of derpression on admission, Instruct/assist pt to develop coping & personal stress Mgt strategies, Instruct patient to recognize signs & symptoms of depression, Instruct patient to recog Patient Health Questionnaire Initial Assessment 1. Little interest or pleasure in doing things: More than half the days 2. Feeling down, depressed, or hopeless: More than half the days 3. Trouble falling or staying asleep, or sleeping too much: Nearly every day 4. Feeling tired or having little energy: Nearly every day 5. Poor appetite or overeating: More than half the days 6. Feeling bad about yourself -- or that you are a failure or have let yourself or your family down: Nearly every day 7. Trouble concentrating on things, such as reading the newspaper or watching television: More than half the days 8. Moving or speaking so slowly that other people could have noticed. Or the opposite - being so fidgety or restless that you have been moving around a lot more than usual: More than half the days 9. Thoughts that you would be better off , or of hurting yourself in some way: Not at all How difficult have these problems made it for you to do your work, take care of things at home, or get along with other people?: Somewhat difficult Total Score: 19 KAYLA-Q SV Test - Statements CAD is a disease of the arteries in the heart: False Examples of risk factors for heart disease: True Angina is chest pain or discomfort: True The benefits of resistance training include: True Eating more meat and dairy products: False Anti-platelet medications such as aspirin are important: True The only effective way to manage stress: False An exercise warm-up slowly increases heart rate: I Don't Know Prepared, processed foods usually have high sodium: True Depression is common after a heart attack: I Don't Know The statin medications lower cholesterol: True To control blood pressure, lower the amount of sodium: True If someone gets chest discomfort during walking: False Transfats are partially hydrogenated vegetable oils: True Sleep apnea that is not treated increases the risk: I Don't Know To control cholesterol, one should become a vegetarian: False Someone knows if he/she is exercising at the right level: True Diabetes cannot be prevented with exercise & health eating: I Don't Know Stress is a large risk for heart attack: True A diet that can help lower blood pressure is rich in: True - Total Score Total Correct Responses: 16 Self-Efficacy Initial Assessment We would like to know how confident you are in doing certain activities. Please select your confidence level for:: Select your confidence level for the following using the scale 1-10 where 1 is not at all confident and 10 is totally confident. Your score is the average of all 6 responses. Fatigue: How confident are you that you can keep the fatigue caused by your disease from interfering with the things you want to do? Select Number: 9 Physical Discomfort or Pain: How confident are you that you can keep the physical discomfort or pain of your disease from interfering with the things you want to do? Select Number: 9 Emotional Distress: How confident are you that you can keep the emotional distress caused by your disease from interfering with the things you want to do? Select Number: 7 Other Symptoms or Health Problems: How confident are you that you can keep other symptoms or health problems from interfering with the things you want to do? Select Number: 9 Different Tasks and Activities: How confident are you that you can do the different tasks and activities needed to manage your health condition so as to reduce your need to see a doctor? Select Number: 8 Medication: How confident are you that you can do things other than just taking medication to reduce how much your illness affects your everyday life? Select Number: 9 Total Score:: 8 Nutrition Survey - Nutrition Survey Instructions Scoring Instructions: Scoring is as follows: Yes = 1 points. No = 0 point. Patient score that is >/=12 is considered to be at potential nutritional risk and could benefit from a referral to a registered dietitian. - Nutrition Survey Initial Have you lost >10 lbs over the past 2 months without trying?: No Are you following a special diet at home for diabetes, low fat, or low salt?: No Are you interested in meeting with a dietitian for help understanding your diet?: No Do you eat less than 3 meals a day?: No Do you eat fatty meats (ho, sausage, ribs, etc), fried foods, desserts, large amounts of salad dressings, margarine, butter, or cheese most days?: No Do you have food allergies? [Enter types in comment field]: No Do you eat in restaurants more than 3 times a week?: No Do you season food with salt, seasoning salt, or garlic salt?: No Do you used canned, boxed, frozen meals, or soups, seasoning packets?: No Total Score:: 0
--- NOTE | 2021-03-05 09:48 | CR.HP_ITS ---
CR - History & Physical - General Arrival date:: 03/05/21 Arrival time:: 09:51 Date of Referral:: 02/27/21 Date of CR Evaluation:: 03/05/21 Referring Physician: Dr. Buster Ochoa Primary Diagnosis: PCI w/stenting - History of Present Cardiac Event Onset Date: Enter Onset Date of cardiac illnesses in Comment field below PTCA or coronary stenting:: Yes - PCI w/stenting on 02/27/2021 Type of Symptoms:: Feeling of lungs burning and discomfort on the left side of his chest, fatigued, no energy to do anything. Interventions with present event:: Went for his annual appt. with Dr. Ochoa, scheduled patient stress test. - Medications Home Medications: Ambulatory Orders Medication Instructions Recorded albuterol sulfate 90 mcg/actuation 2 puff INHALATION Q6H PRN 02/09/18 aerosol inhaler Atorvastatin Calcium [Lipitor] 40 mg PO QHS #30 tablet 02/27/21 Ticagrelor [Brilinta] 90 mg PO BID #60 tablet 02/27/21 Albuterol Aerosols [Ventolin 2.5 mg INHALATION Q4H PRN 02/28/21 Aerosols] vial.neb. Aspirin E.C. [Ecotrin] 81 mg PO DAILY@0800 tablet 02/28/21 lisinopril 20 mg tablet 10 mg PO BREAKFAST tablet 03/03/21 metoprolol succinate 25 mg 12.5 mg PO QHS tablet 03/03/21 tablet,extended release 24 hr - Allergies Allergies/Adverse Reactions: Allergies montelukast [From Singulair] Adverse Reaction (Verified 03/03/21 10:01) nightmares - Sleep Disorder Evaluation Hx of Sleep Apnea: No Do you snore loudly (louder than talking or can be heard through closed doors)?: Yes - Hx of Insomnia Do you often feel tired/ fatigued/ sleepy during daytime?: No Has anyone observed you stop breathing during sleep?: No History of Hypertension (for STOP score): Yes STOP Results: Positive Advanced Directives - Advanced Directives 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 Living Will: Yes Advance Directives Information Provided: No Advance Directives on File: No DNR Order?:: No - MOLST See MOLST form: No Past Medical History - Covid-19 Screening Fever: No Unexplained muscle aches: No Current respiratory symptoms: Yes - Sinus congestion, moderate persistent asthma and Ortiz's lung Upper respiratory infections symptoms: No Gastro-intestinal symptoms: No Has tested positive for COVID-19 in last 30 days: No Had contact w/person w/symptoms or Covid-19 (+) last 14 days: No 65 years or older:: Yes Lives in Assisted Living facility:: No Has a chronic lung disease or moderate to severe asthma:: Yes Has a serious heart condition:: No Immunocompromised:: No Severely obese (Body Mass Index of 40 or higher):: No Diabetic:: No Has chronic kidney disease undergoing dialysis:: No Has liver disease:: No - Past Medical Illness Medical History: Past Medical History (Last Reviewed 03/03/21 @ 12:59 by Estephania SAMUELS, PA) Dyspnea on exertion (Chronic) R06.09 Atherosclerotic heart disease of [place] coronary artery without angina pectoris (Chronic) I25.10 Incomplete left bundle branch block (Chronic) I44.7 Essential (primary) hypertension (Chronic) I10 Hyperlipidemia (Chronic) E78.5 Sinus congestion (Chronic) R09.81 Asthma, moderate persistent (Chronic) J45.40 [place]' lung disease (Chronic) J67.0 in the Left inguinal hernia K40.90 - Past Surgical History Surgical History: Past Surgical History (Last Reviewed 03/03/21 @ 12:59 by Estephania SAMUELS, PA) History of coronary artery stent placement (Chronic) Onset Date: 02/27/21 Z95.5 PCI-MENDOZA-Mid LAD w/ 4.0 x 16 mm Synergy Stent 02/27/21 Surgical History: no surgical history - Family History Summary Family History: Family History (Last Reviewed 03/03/21 @ 12:59 by Estephania SAMUELS, PA) Father CAD (coronary artery disease) Myocardial infarction, Onset Age: 65 Mother COPD (chronic obstructive pulmonary disease) Uncle Sudden cardiac Social History - Smoking History Smoking Status: Former smoker Years Smokin Packs Smoked per Day: 1 Hx Smoking Cessation Date: 04/28/76 Hx Tobacco Use: No Hx Smoking Exposure: No - Alcohol Use Alcohol Usage: Yes - holidays/special occasions only Alcohol type: beer. - Substance Abuse Hx Substance Use: No - Occupation Occupation (List type of work in comments):: Retired - Hobbies, Recreation, Social Activities Hobbies: Farm - main hobby is farming, dairy farming, Other Recreational Activities: I am able to engage in most, but not all activities - still limited on weight lifting. Social Environment - Status Marital Status: - Current Living Arrangements Living Environment:: Spouse - Children How many children do you have?: 4 Do any of your children live nearby?: Yes - Safety Do you feel safe in your surroundings?: Yes Review of Systems - Review of Systems Hints: Right click = Denies (Slash). Left click = Reports ([place]) Review of Present Symptoms: Reports: Angina - still having some of the same symtpoms, been to the emergency room but have been told its mainly associated with anxiety/panic., Heart Arrhythmia/Irregularities - incomplete left bundle branch block., Appetite - Normal - still improving., Appetite - Special Diet - low salt/no-added salt, no caffeine, Sleep - Normal. Denies: Shortness of Breath at Rest, Shortness of Breath with Exertion, Dizziness/Lightheadedness, Fatigue - Pain Is Patient Pain Free?: Yes Pain Location: none Risk Factor Assessment - Chief Complaint Chief Complaint: Patient is a 70/male of Dr. Ochoa who presents to cardiac rehab today following recent PCI intervention on 02/27/2021. Joshua has a history of shortness of breath on exertion and an extensive family shitory of coronary artery disease. - Vital Signs Temperature: 97.2 F Respiratory Rate: 16 Pulse Ox: 97 Blood Pressure: 128/82 - Pulse Pulse Rate: 68 Pulse Rhythm: Regular - Hypertension Blood Pressure Sitting - Left Arm: 128/82 - Blood Cholesterol/Lipids Total Cholesterol (mg/dL) Goal = less than 200 mg/dL: 214 - 02/06/2021 HDL Cholesterol (mg/dL) Goal = less than 40 mg/dL: 51 LDL Cholesterol (mg/dL) Goal = less than 70 mg/dL: 141 Triglycerides (mg/dL) Goal = less than 150 mg/dL: 111 - Obesity Height: 6 ft 1 in Weight:: 191 lb Weight in Pounds: 191.0 lbs Weight Source: Standing Scale Body Mass Index (BMI): 25.2 Nutritional Referral for Obesity: No - Physical Inactivity Physical Inactivity: Recreational activity - Risk Stratification Risk Guidelines: Lowest Risk: Risk Factor for Smoking, Risk Factor for Diabetes, Risk Factor for Obesity, Risk Factor for Sedentary Lifestyle, Risk Factor for Depression, Moderate Risk: Risk Factor for Dyslipidemia, Risk Factor for Hypertension - For Smoking Smoking Risk Guidelines: Smoking Low Risk: None or quit greater than 6 months ago. Smoking Moderate Risk: Smoker or quit 6 months or less ago. Smoking High Risk: Smoker - For Dyslipidemia Dyslipidemia Risk Guidelines: Low Risk: Moderate Risk: High Risk: 15-25% fat 25.1-29% fat >/= 30% fat. <7% sat fat 7-9% sat fat >9% sat fat. <150 mg chol 150-299 mg chol >/= 300 mg chol. LDL <100 LDL 100-129 LDL >/= 130. Chol/HDL ratio <5.0 Chol/HDL ratio 5.0-6.0 Chol/HDL ratio >6.0. Triglycerides <100 Triglycerides 100-149 Triglycerides >/= 150 - For Diabetes Mellitus Diabetes Risk Guidelines: Diabetes Low Risk: HgA1c <6.5% and/or FBG <120. Diabetes Moderate Risk: HgA1c 6.6-7.9% and/or FBG 120-180. Diabetes High Risk: HgA1c >/= 8% and/or FBG >180 - For Obesity/Overweight Obesity/Overweight Risk Guidelines: Obesity Low Risk: BMI <25.0. Obesity Moderate Risk: BMI 25-29.9. Obesity High Risk: BMI >/= 30.0 - For Hypertension Hypertension Risk Guidelines: Hypertension Low Risk: Systolic <120 and Diastolic <80. Hypertension Moderate Risk: Systolic 120-139 and Diastolic 80-89. Hypertension High Risk: Systolic >/= 140 and Diastolic >/= 90 - For Sedentary Lifestyle Sedentary Lifestyle Risk Guidelines: Sedentary Lifestyle Low Risk: >/= 1,500 kcal/week. Sedentary Lifestyle Moderate Risk: 700-1,499 kcal/week. Sedentary Lifestyle High Risk: < 700 kcal/week - For Depression Depression Risk Guidelines: Depression Low Risk: Not clinically depressed. Depression Moderate Risk: Mildly depressed. Depression High Risk: Clinically depressed - Family History Family History: Family History (Last Reviewed 03/03/21 @ 12:59 by Etsephania Hanson PA, PA) Father CAD (coronary artery disease) Myocardial infarction, Onset Age: 65 Mother COPD (chronic obstructive pulmonary disease) Uncle Sudden cardiac Motivation - Motivation to Participate On a scale of 1 to 10, how prepared are you to commit to attending program?: 7 - Know I have to do something What do you see as barriers to successfully being able to complete the program?: no What do you see as the benefits of succesfully completing the program? In other words, what do you hope to get out of participating in the program?: getting stronger, health improves, more energy Are there issues you are dealing with that will interfere with completing the program?: still having some anxiety with chest discomfort Do you have a spouse or signficant other, family or friends who will help support you to complete the program?: yes
[2021-03-05 10:08] VITALS: BP 128/82; BMI 25.2
[2021-03-05 10:22] VITALS: BP 128/82; PULSE 68; RESP 16; TEMP 36.2; O2SAT 97; BMI 25.2
== END ==
PROVIDERS: PCP Family Medicine; Visit Provider Internal Medicine Cardiovascular Disease
DX: I25.10 Atherosclerotic heart disease of native coronary artery without angina pectoris (principal); Z95.5 Presence of coronary angioplasty implant and graft; I44.7 Left bundle-branch block, unspecified; I10 Essential (primary) hypertension; E78.5 Hyperlipidemia, unspecified; J45.40 Moderate persistent asthma, uncomplicated; Z79.899 Other long term (current) drug therapy; Z79.82 Long term (current) use of aspirin

== ENCOUNTER → 2021-03-09 08:37 | Outpatient (CLI) | payer MEDICARE, SELFPAY ==
[2021-03-05 10:08] VITALS: BMI 25.2
[2021-03-05 10:22] VITALS: BMI 25.2
== END ==
PROVIDERS: PCP Family Medicine; Referring Provider Internal Medicine Cardiovascular Disease; Visit Provider Internal Medicine Cardiovascular Disease
DX: S45.891A Other specified injury of other specified blood vessels at shoulder and upper arm level, right arm, initial encounter (principal); S45.901A Unspecified injury of unspecified blood vessel at shoulder and upper arm level, right arm, initial encounter; S50.11XA Contusion of right forearm, initial encounter; I25.10 Atherosclerotic heart disease of native coronary artery without angina pectoris; Z95.5 Presence of coronary angioplasty implant and graft; I44.7 Left bundle-branch block, unspecified; E78.5 Hyperlipidemia, unspecified; I10 Essential (primary) hypertension; M79.603 Pain in arm, unspecified; R06.09 Other forms of dyspnea
CPT/HCPCS: 93931

== ENCOUNTER 2021-03-27 08:00 | Outpatient (RCR) | payer MEDICARE, SELFPAY ==
[2021-03-05 10:08] VITALS: BMI 25.2
[2021-03-05 10:22] VITALS: BMI 25.2
== END 2021-03-27 23:59 ==
LOC: CR 08:00
PROVIDERS: PCP Family Medicine; Referring Provider Internal Medicine Cardiovascular Disease; Visit Provider Internal Medicine Cardiovascular Disease
DX: I25.10 Atherosclerotic heart disease of native coronary artery without angina pectoris (principal); I44.7 Left bundle-branch block, unspecified; I10 Essential (primary) hypertension; E78.5 Hyperlipidemia, unspecified; R06.09 Other forms of dyspnea; Z95.5 Presence of coronary angioplasty implant and graft
CPT/HCPCS: 93798

== ENCOUNTER → 2021-04-15 07:22 | Outpatient (CLI) | payer MEDICARE, SELFPAY ==
[2021-03-13 11:30] VITALS: BMI 24.5
[2021-04-03 07:24] VITALS: BMI 24.5
[2021-04-15 08:30] LABS: AST(SGOT) 21 U/L (15-37); Alanine Aminotransfer ALT/SGPT 38 U/L (16-61); Albumin, Serum 3.7 g/dL (3.2-5.0); Alkaline Phosphatase 111 U/L (45-117); Bilirubin, Direct 0.37 mg/dL (0.00-0.30); Cholesterol 110 mg/dL (200); Globulin 3.4 g/dL (2.2-4.2); High Density Lipoprotein 57 mg/dL; Protein, Total 7.1 g/dL (6.4-8.2); Triglycerides 74 mg/dL; Very Low Density Lipoprotein 15 mg/dL (5-40)
== END ==
PROVIDERS: PCP Family Medicine; Referring Provider Physician Assistant Medical; Visit Provider Physician Assistant Medical
DX: E78.5 Hyperlipidemia, unspecified (principal); I10 Essential (primary) hypertension; I25.10 Atherosclerotic heart disease of native coronary artery without angina pectoris
CPT/HCPCS: 36415; 80061; 80076

== ENCOUNTER 2021-04-24 08:00 | Outpatient (RCR) | payer MEDICARE, SELFPAY ==
[2021-03-05 10:08] VITALS: BMI 25.2
[2021-03-13 11:30] VITALS: BMI 24.5
--- NOTE | 2021-04-03 07:13 | CR.ITP_ITS ---
Diagnosis Exercise - 30-day Assessment - Visit Date of Eval: 04/03/21 Session #:: 12 Comments:: Patient has experienced left sided chest pain with no ECG changes noted. 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 Patient was started on isosorbide mononitrate 30mg on 04/01/2021. Patient also has a history of farmers lung disease. We will continue to monitor the patient. - Physician Prescribed Exercise Modalities: Treadmill, Rower, Airdyne, NuStep Frequency: 3x/week for 12 weeks [36 sessions] Intensity: 60-80% of age predicted maximum heart rate reserve Current METSs:: 6.0 increased from 5.5 Target Heart Rate:: 96-123 Current RPE:: 12 Maximum Excercise HR:: 123 Resting Blood Pressure: 108/64 Maximum Exercise Blood Pressure: 156/84 EKG Type: NSR to sinus tachycardia, incomplete LBBB rare PAC noted. No ST changes. - Outcomes & Goals Goals:: Verbalizes understanding of THR, RPE & goal METS by session 6, Documents in home exercise log/reports 30 min aerobic 5 day/wk by DC, Demonstrates accurate pulse taking by DC - Intervention & Plan Exercise Program Goals: Instruct on personal THR & RPE, Instruct on MET level & personal MET goal, Show patient to take own pulse /validate performance until accurate, Instruct on home exercise - 30-day Reassessments 30 day Reassessments:: Progressing - Physical Activity Home Exercise Physical Activity - Home Exercise: Safe Exercise, Warm-up, Self-monitoring, Cool-Down, Home Exercise > 30 min Daily, Sitting Time <3 hours/daily - Outcomes & Goals Outcomes/Goals: Demonstrates correct Warm-up/exercise Cool-Down (S3) if = 2.5 METs, Verbalizes symptoms of exercise intolerance by Session 3 (S3), Demonstrate safe equipment use (S3) & follows exercise prescrition (6) - Intervention & Plan Plan/Intervention: Instruct warm-up & cool-down if exercising at > 2 METs, Instruct on symptoms of exercise intolerance & actions to take, Instruct & monitor on saf, Assess intial functional capacity & safety risk - 30-day Reassessments 30 day Reassessments:: Progressing Nutrition - Initial Assessment Nutrition - 30-Day Assessment - Program Goals Nutrition Program Goals: LDL <100 optimal. 100 - 129 Near optimal. 130 - 159 Borderline High. 160 - 189 High. Total Cholesterol <200 desirable. 200 - 239 Borderline High. >/= 240 High. HDL < 40 Low >/=60 High. Triglycerides <150 desirable. <199 optimal. VlDL 5 - 40. HgbA1C <7%. BMI <25 Patient has diagnosis of Hyperlipidemia (ICD E78)?: Yes - Visit Date of Assessment:: 04/03/21 Session #:: 12 - Cholesterol/Lipids Triglycerides (mg/dL): 111 - 02/06/2021 Total Cholesterol (mg/dL): 214 LDL Cholesterol (mg/dL): 141 HDL Cholesterol (mg/dL): 51 Determine presence & major risk factors that modify LDL goal: Hypertension or hypertensive medication, Family history of premature CHD in Male < 55 years: female <65 yearsFa, Age men > 45 years; women >/= 55 years Outcomes/Goals: Pt IDs own risk factors & lifestyle modifications by Session 10, Verbalizes symptoms of angina & response by session 3., Pt independently manages Intervention/Plan: Instruct on personal lipid levels & lipid goals/NCEP guidelines, Instruct on cholesterol Referral to dietitian:: Yes - Diabetes (Other Core Measures) Diabetes Type: Not Applicable - Weight Mgt (Other Care) Not Applicable: Yes Height: 6 ft 1 in Weight:: 186 lb BMI: 24.5 Diagnosis Overweight/Obesity BMI> 30% ICD-10 E66: No Diagnosis High BMI/Morbid Obesity BMI> 35% ICD-10 Z68: No Outcomes/Goals: Pt sets, maintains & shows weight loss goal & trend during rehab Intervention/Plan: Instruct on ideal BMI & set weight loss goal w/patient 30 day Reassessments:: Met - Healthy Eating Habits Will attend diet classes:: Yes Outcomes/Goals:: Consume diet rich in vegs,fruits,whole grain/high fiber,fish,lean meat, Limit sat/trans fats,cholesterol & added salts & sugars Intervention/Plan:: Assess current eating habits 30-day Reassessments:: Met - Low fat, low cholesterol, Low sodium diet. Nutrition - 60-Day Assessment Nutrition - 90-Day Assessment Nutrition - Final Assessment Medical - Initial Assessment Medical- 30-Day Assessment - Visit Date of Eval: 04/03/21 Session #:: 12 - Medication Compliance Preventative Medication(s):: Aspirin, Ticagrelor/P2Y12 inhibitor, Statin/lipid, Beta marybeth H/O mental health issues: depression, anxiety, or addiction?: No Doesn?t believe in the benefits of treatment?: No Believes medications are unnecessary or harmful?: No Has a concern about medication side effects?: No Expresses concern over the cost of medications?: No Outcomes/Goals: Verbalizes medications,desired effect & common side effects @ DC, Pt self-reports following medication regimen, Keeps card in wallet w/medications listed by DC Interventions/plans: Instruct on medication effects & side effects, Review medication list w/patient every two weeks, Instruct importance of taking meds as ordered & assist problem solving 30-day Reassessments:: Progressing - Tobacco Use Tobacco Use: Non-smoker - Hypertension Hypertension Diagnosis:: Hypertension ICD-10 I10 Resting Blood Pressure:: 108/64 [place] [employer] Hypertension Guidelines: [place] [employer] Hypertension Guidelines. Normal BP Less than 120/80. Elevated BP 120/80. Hypertension Stage 1: BP 130-139/80-89. Hypertesnion Stage 2: BP 140 or higher/90 or higher. Hypertension Crisis: BP higher than 180/120 Peak Exercise Blood Pressure:: 156/84 Outcomes/Goals: Able to verbalize/achieve optimal blood pressure <130/80, Incorporates diet changes & exercise for blood pressure control by DC Interventions/plan: Instruct on optimal blood pressure, hypertension & medications, Instruct on effects of sodium, alcohol, stress, exercise &hypertension 30 day Reassessments:: Progressing - Tobacco Cessation Referral Smoking Cessation Referral:: No Individual Education/Counseling:: No Education Schedule Given:: Yes Medical- 60-Day Assessment Medical- 90-Day Assessment Medical - Final Assessment Psychosocial - Initial Assess Psychosocial - 30-Day Assess - VIsit Date of Eval: 04/03/21 Session #:: 12 Not Applicable: Yes History of previous Mental disease:: No - Psychosocial Test Tool Used:: PHQ-9 Questionnaire phq-9 Severity: Severity. 1-4 Minimal Depression. 5-9 Mild Depression. 10-14 Moderate Depression. 15-19 Moderately Sever Depression. 20-27 Severe Depression. Rule: - Referral to Behavioral Health PS - Interventions: Yes Attend Stress Management Classes, No Referral to Behavioral Health if PHQ-9 score >9:, No Referral to [facility], No Referral to Physician if PHQ-9 if score is 5-9: - Outcomes/Goals: See list Psychosocial Outcomes/Goals:: ID's personal stressors & 2 strategies to manage stress by discharge - Intervention/Plan: See List Interventions/Plan:: Assess stressors,coping strategies & signs of derpression on admission, Instruct/assist pt to develop coping & personal stress Mgt strategies, Instruct patient to recognize signs & symptoms of depression, Instruct patient to recog - 30-day Reassessments: 30 day Reassessments:: Met Psychosocial - 60-Day Assess Psychosocial - 90-Day Assess Psychosocial - Final Assessmen Patient Health Questionnaire 30-Day Re-eval Assessment 1. Little interest or pleasure in doing things: Several days 2. Feeling down, depressed, or hopeless: Several days 3. Trouble falling or staying asleep, or sleeping too much: More than half the days 4. Feeling tired or having little energy: Several days 5. Poor appetite or overeating: Not at all 6. Feeling bad about yourself -- or that you are a failure or have let yourself or your family down: Not at all 7. Trouble concentrating on things, such as reading the newspaper or watching television: Several days 8. Moving or speaking so slowly that other people could have noticed. Or the opposite - being so fidgety or restless that you have been moving around a lot more than usual: Several days How difficult have these problems made it for you to do your work, take care of things at home, or get along with other people?: Somewhat difficult Total Score: 7 Self-Efficacy 30-Day Re-eval Assessment We would like to know how confident you are in doing certain activities. Please select your confidence level for:: Select your confidence level for the following using the scale 1-10 where 1 is not at all confident and 10 is totally confident. Your score is the average of all 6 responses. Fatigue: How confident are you that you can keep the fatigue caused by your disease from interfering with the things you want to do? Select Number: 10 Physical Discomfort or Pain: How confident are you that you can keep the physical discomfort or pain of your disease from interfering with the things you want to do? Select Number: 10 Emotional Distress: How confident are you that you can keep the emotional d istress caused by your disease from interfering with the things you want to do? Select Number: 8 Other Symptoms or Health Problems: How confident are you that you can keep other symptoms or health problems from interfering with the things you want to do? Select Number: 9 Different Tasks and Activities: How confident are you that you can do the different tasks and activities needed to manage your health condition so as to reduce your need to see a doctor? Select Number: 10 Medication: How confident are you that you can do things other than just taking medication to reduce how much your illness affects your everyday life? Select Number: 9 Total Score:: 9 Nutrition Survey
[2021-04-03 07:24] VITALS: BP 108/64; BP 156/84; BMI 24.5
== END 2021-04-27 23:59 ==
LOC: CR 08:00
PROVIDERS: PCP Family Medicine; Referring Provider Internal Medicine Cardiovascular Disease; Visit Provider Internal Medicine Cardiovascular Disease
DX: I25.10 Atherosclerotic heart disease of native coronary artery without angina pectoris (principal); I44.7 Left bundle-branch block, unspecified; I10 Essential (primary) hypertension; E78.5 Hyperlipidemia, unspecified; R06.09 Other forms of dyspnea; Z95.5 Presence of coronary angioplasty implant and graft
CPT/HCPCS: 93798

== ENCOUNTER 2021-05-27 08:00 | Outpatient (RCR) | payer MEDICARE, SELFPAY ==
[2021-03-13 11:30] VITALS: BMI 24.5
[2021-04-03 07:24] VITALS: BMI 24.5
[2021-04-28 00:35] VITALS: BP 108/64; BP 156/84
--- NOTE | 2021-05-04 07:11 | CR.ITP_ITS ---
Diagnosis Exercise - 60-day Assessment - Visit Date of Eval: 05/04/21 Session #:: 23 - Physician Prescribed Exercise Modalities: Treadmill, Rower, Airdyne Frequency: 3x/week for 12 weeks [36 sessions] Intensity: 60-80% of age predicted maximum heart rate reserve Current METSs:: 7.5 Target Heart Rate:: 96-125 Current RPE:: 13-14 Maximum Excercise HR:: 134 Resting Blood Pressure: 108/70 Maximum Exercise Blood Pressure: 160/90 EKG Type: NSR to sinus tach incomplete LBBB with rare PAC and PVC - Outcomes & Goals Goals:: Verbalizes understanding of THR, RPE & goal METS by session 6, Documents in home exercise log/reports 30 min aerobic 5 day/wk by DC, Demonstrates accurate pulse taking by DC - Intervention & Plan Exercise Program Goals: Instruct on personal THR & RPE, Instruct on MET level & personal MET goal, Show patient to take own pulse /validate performance until accurate, Instruct on home exercise - 30-day Reassessments 30 day Reassessments:: Met - Physical Activity Home Exercise Physical Activity - Home Exercise: Safe Exercise, Warm-up, Self-monitoring, Cool-Down, Home Exercise > 30 min Daily, Sitting Time <3 hours/daily - Outcomes & Goals Outcomes/Goals: Demonstrates correct Warm-up/exercise Cool-Down (S3) if = 2.5 METs, Verbalizes symptoms of exercise intolerance by Session 3 (S3), Demonstrate safe equipment use (S3) & follows exercise prescrition (6) - Intervention & Plan Plan/Intervention: Instruct warm-up & cool-down if exercising at > 2 METs, Instruct on symptoms of exercise intolerance & actions to take, Instruct & monitor on saf, Assess intial functional capacity & safety risk - 30-day Reassessments 30 day Reassessments:: Met Nutrition - Initial Assessment Nutrition - 30-Day Assessment Nutrition - 60-Day Assessment - Program Goals Nutrition Program Goals: LDL <100 optimal. 100 - 129 Near optimal. 130 - 159 Borderline High. 160 - 189 High. Total Cholesterol <200 desirable. 200 - 239 Borderline High. >/= 240 High. HDL < 40 Low >/=60 High. Triglycerides <150 desirable. <199 optimal. VlDL 5 - 40. HgbA1C <7%. BMI <25 Patient has diagnosis of Hyperlipidemia (ICD E78)?: Yes - Visit Date of Assessment:: 05/04/21 - no recent labs updated - Cholesterol/Lipids Determine presence & major risk factors that modify LDL goal: Hypertension or hypertensive medication, Family history of premature CHD in Male < 55 years: female <65 yearsFa, Age men > 45 years; women >/= 55 years Outcomes/Goals: Pt IDs own risk factors & lifestyle modifications by Session 10, Verbalizes symptoms of angina & response by session 3., Pt independently manages Intervention/Plan: Instruct on personal lipid levels & lipid goals/NCEP guidelines, Instruct on cholesterol Referral to dietitian:: No 30-day Reassessments:: Progressing - Diabetes (Other Core Measures) Diabetes Type: Not Applicable - Weight Mgt (Other Care) Not Applicable: Yes Height: 6 ft 1 in Weight:: 184 lb 8 oz BMI: 24.3 Diagnosis Overweight/Obesity BMI> 30% ICD-10 E66: No Diagnosis High BMI/Morbid Obesity BMI> 35% ICD-10 Z68: No Outcomes/Goals: Pt sets, maintains & shows weight loss goal & trend during rehab Intervention/Plan: Instruct on ideal BMI & set weight loss goal w/patient 30 day Reassessments:: Met - Healthy Eating Habits Will attend diet classes:: Yes Outcomes/Goals:: Consume diet rich in vegs,fruits,whole grain/high fiber,fish,lean meat, Limit sat/trans fats,cholesterol & added salts & sugars Intervention/Plan:: Assess current eating habits 30-day Reassessments:: Met - Education Gave educational materials for:: Healthy eating Nutrition - 90-Day Assessment Nutrition - Final Assessment Medical - Initial Assessment Medical- 30-Day Assessment Medical- 60-Day Assessment - Visit Date of Eval: 05/04/21 Session #:: 23 - Medication Compliance Preventative Medication(s):: Aspirin, Ticagrelor/P2Y12 inhibitor, Statin/lipid, Beta marybeth H/O mental health issues: depression, anxiety, or addiction?: No Doesn?t believe in the benefits of treatment?: No Believes medications are unnecessary or harmful?: No Has a concern about medication side effects?: No Expresses concern over the cost of medications?: No Outcomes/Goals: Verbalizes medications,desired effect & common side effects @ DC, Pt self-reports following medication regimen, Keeps card in wallet w/medications listed by DC Interventions/plans: Instruct on medication effects & side effects, Review medication list w/patient every two weeks, Instruct importance of taking meds as ordered & assist problem solving 30-day Reassessments:: Met - Tobacco Use Tobacco Use: Non-smoker - Hypertension Hypertension Diagnosis:: Hypertension ICD-10 I10 Resting Blood Pressure:: 108/70 - controlled well with medications [place] [employer] Hypertension Guidelines: [place] [employer] Hypertension Guidelines. Normal BP Less than 120/80. Elevated BP 120/80. Hypertension Stage 1: BP 130-139/80-89. Hypertesnion Stage 2: BP 140 or higher/90 or higher. Hypertension Crisis: BP higher than 180/120 Peak Exercise Blood Pressure:: 160/90 - 7.5 METs Outcomes/Goals: Able to verbalize/achieve optimal blood pressure <130/80, Incorporates diet changes & exercise for blood pressure control by DC Interventions/plan: Instruct on optimal blood pressure, hypertension & medications, Instruct on effects of sodium, alcohol, stress, exercise &hypertension 30 day Reassessments:: Met - Tobacco Cessation Referral Smoking Cessation Referral:: No Individual Education/Counseling:: No Education Schedule Given:: Yes Medical- 90-Day Assessment Medical - Final Assessment Psychosocial - Initial Assess Psychosocial - 30-Day Assess Psychosocial - 60-Day Assess - VIsit Date of Eval: 05/04/21 Session #:: 23 Not Applicable: Yes History of previous Mental disease:: No - Psychosocial Test Tool Used:: PHQ-9 Questionnaire phq-9 Severity: Severity. 1-4 Minimal Depression. 5-9 Mild Depression. 10-14 Moderate Depression. 15-19 Moderately Sever Depression. 20-27 Severe Depression. Rule: - Referral to Behavioral Health PS - Interventions: Yes Attend Stress Management Classes, No Referral to Behavioral Health if PHQ-9 score >9:, No Referral to [facility], No Referral to Physician if PHQ-9 if score is 5-9: - Outcomes/Goals: See list Psychosocial Outcomes/Goals:: ID's personal stressors & 2 strategies to manage stress by discharge - Intervention/Plan: See List Interventions/Plan:: Assess stressors,coping strategies & signs of derpression on admission, Instruct/assist pt to develop coping & personal stress Mgt strategies, Instruct patient to recognize signs & symptoms of depression, Instruct patient to recog - 30-day Reassessments: 30 day Reassessments:: Met Psychosocial - 90-Day Assess Psychosocial - Final Assessmen Patient Health Questionnaire 60-Day Re-eval Assessment 1. Little interest or pleasure in doing things: Not at all 2. Feeling down, depressed, or hopeless: Not at all 3. Trouble falling or staying asleep, or sleeping too much: Not at all 4. Feeling tired or having little energy: Not at all 5. Poor appetite or overeating: Not at all 6. Feeling bad about yourself -- or that you are a failure or have let yourself or your family down: Not at all 7. Trouble concentrating on things, such as reading the newspaper or watching television: Not at all 8. Moving or speaking so slowly that other people could have noticed. Or the opposite - being so fidgety or restless that you have been moving around a lot more than usual: Not at all 9. Thoughts that you would be better off , or of hurting yourself in some way: Not at all Total Score: 0 Self-Efficacy 60-Day Re-eval Assessment We would like to know how confident you are in doing certain activities. Please select your confidence level for:: Select your confidence level for the following using the scale 1-10 where 1 is not at all confident and 10 is totally confident. Your score is the average of all 6 responses. Fatigue: How confident are you that you can keep the fatigue caused by your disease from interfering with the things you want to do? Select Number: 10 Physical Discomfort or Pain: How confident are you that you can keep the physical discomfort or pain of your disease from interfering with the things you want to do? Select Number: 10 Emotional Distress: How confident are you that you can keep the emotional distress caused by your disease from interfering with the things you want to do? Select Number: 10 Other Symptoms or Health Problems: How confident are you that you can keep other symptoms or health problems from interfering with the things you want to do? Select Number: 10 Different Tasks and Activities: How confident are you that you can do the different tasks and activities needed to manage your health condition so as to reduce your need to see a doctor? Select Number: 10 Medication: How confident are you that you can do things other than just taking medication to reduce how much your illness affects your everyday life? Select Number: 10 Total Score:: 10 Nutrition Survey
[2021-05-04 07:21] VITALS: BP 108/70; BP 160/90; BMI 24.3
== END 2021-05-27 23:59 ==
LOC: CR 08:00
PROVIDERS: PCP Family Medicine; Referring Provider Internal Medicine Cardiovascular Disease; Visit Provider Internal Medicine Cardiovascular Disease
DX: I25.10 Atherosclerotic heart disease of native coronary artery without angina pectoris (principal); I44.7 Left bundle-branch block, unspecified; I10 Essential (primary) hypertension; E78.5 Hyperlipidemia, unspecified; R06.09 Other forms of dyspnea; Z95.5 Presence of coronary angioplasty implant and graft
CPT/HCPCS: 93798

== ENCOUNTER 2021-06-03 08:00 | Outpatient (RCR) | payer MEDICARE, SELFPAY ==
[2021-05-04 07:21] VITALS: BMI 24.3
[2021-05-28 00:25] VITALS: BP 108/70; BP 160/90; BMI 25.2
--- NOTE | 2021-06-03 09:15 | PCM.CR.ITP ---
Diagnosis - General Information Admitting Diagnosis: PCI with coronary stent Personal Learning Style:: Audio/Visual Gave educational material for:: Treating Heart Disease, Emotions & Heart Disease, Stress Management & Relaxation, Sleep Disorders & Heart Disease, How The Heart Works, What it means to have Heart Disease, How Coronary Artery Disease is Diagnosed, Heart Procedures, What Heart Medications Do, Risk Factors & Modifications, Living an Active Life, Nutrition - Diagnosis & Disease Process Outcomes/Goals: Pt IDs own risk factors & lifestyle modifications by Session 10, Verbalizes symptoms of angina & response by session 3., Pt independently manages, Other Additional Outcomes/Goals: Plan/Interventions: Assist Pt to ID & engage in lifestyle modification to reduce CVD risk, Instruct on individual risk factors, Review symptoms of angina & emergency actions, Review secondary diagnosis & identify educational needs., Other see comment 30 day Reassessments:: Progressing 30 day Reassessments:: Progressing 30 day Reassessments:: Progressing 30 day Reassessments:: Progressing Final Reassessments:: Progressing - Safety Referral to Physical Therapy: No Referral to [facility] Case Management: No Fall Risk Assessed:: Yes Assistive Devices:: None Exercise - 90-day Assessment - Visit Date of Eval: 06/03/21 Session #:: 35 - Physician Prescribed Exercise Modalities: Treadmill, Rower, Airdyne Frequency: 3x/week for 12 weeks [36 sessions] Intensity: 60-80% of age predicted maximum heart rate reserve Current METSs:: 7.5 Target Heart Rate:: 96-125 Current RPE:: 11-12 Maximum Excercise HR:: 125 Resting Blood Pressure: 106/68 Maximum Exercise Blood Pressure: 148/80 EKG Type: NSR - Outcomes & Goals Goals:: Verbalizes understanding of THR, RPE & goal METS by session 6, Documents in home exercise log/reports 30 min aerobic 5 day/wk by DC, Demonstrates accurate pulse taking by DC, Other additional outcome/goals: see below - Intervention & Plan Exercise Program Goals: Instruct on personal THR & RPE, Instruct on MET level & personal MET goal, Show patient to take own pulse /validate performance until accurate, Instruct on home exercise, Other additional plan/int - 30-day Reassessments 30 day Reassessments:: Progressing - Physical Activity Home Exercise Physical Activity - Home Exercise: Safe Exercise, Warm-up, Self-monitoring, Cool-Down, Home Exercise > 30 min Daily, Sitting Time <3 hours/daily - Outcomes & Goals Outcomes/Goals: Demonstrates correct Warm-up/exercise Cool-Down (S3) if = 2.5 METs, Verbalizes symptoms of exercise intolerance by Session 3 (S3), Demonstrate safe equipment use (S3) & follows exercise prescrition (6), Other: See below - Intervention & Plan Plan/Intervention: Instruct warm-up & cool-down if exercising at > 2 METs, Instruct on symptoms of exercise intolerance & actions to take, Instruct & monitor on saf, Assess intial functional capacity & safety risk, Other See below - 30-day Reassessments 30 day Reassessments:: Progressing Nutrition - Initial Assessment Nutrition - 30-Day Assessment Nutrition - 60-Day Assessment Nutrition - 90-Day Assessment - Program Goals Nutrition Program Goals: LDL <100 optimal. 100 - 129 Near optimal. 130 - 159 Borderline High. 160 - 189 High. Total Cholesterol <200 desirable. 200 - 239 Borderline High. >/= 240 High. HDL < 40 Low >/=60 High. Triglycerides <150 desirable. <199 optimal. VlDL 5 - 40. HgbA1C <7%. BMI <25 Patient has diagnosis of Hyperlipidemia (ICD E78)?: Yes - Visit Date of Assessment:: 06/03/21 - Cholesterol/Lipids Outcomes/Goals: Pt IDs own risk factors & lifestyle modifications by Session 10, Verbalizes symptoms of angina & response by session 3., Pt independently manages, Other Additional Outcomes/Goals: Intervention/Plan: Advocate for lipid panel cholesterol medication if applicable, Instruct on personal lipid levels & lipid goals/NCEP guidelines, Instruct on cholesterol, Other additional plan/int Referral to dietitian:: No 30-day Reassessments:: Progressing - Diabetes (Other Core Measures) Diabetes Type: Not Applicable - Weight Mgt (Other Care) Height: 6 ft 1 in Weight:: 83.461 kg BMI: 24.3 30 day Reassessments:: Progressing - Healthy Eating Habits Will attend diet classes:: Yes Outcomes/Goals:: Consume diet rich in vegs,fruits,whole grain/high fiber,fish,lean meat, Limit sat/trans fats,cholesterol & added salts & sugars, Other additional outcome/goals: Intervention/Plan:: Assess current eating habits, Other Additional plan/interventions 30-day Reassessments:: Progressing Nutrition - Final Assessment Medical - Initial Assessment Medical- 30-Day Assessment Medical- 60-Day Assessment Medical- 90-Day Assessment - Visit Date of Eval: 06/03/21 Session #:: 35 - Medication Compliance Preventative Medication(s):: Aspirin, Ticagrelor/P2Y12 inhibitor, Statin/lipid H/O mental health issues: depression, anxiety, or addiction?: No Doesn?t believe in the benefits of treatment?: No Believes medications are unnecessary or harmful?: No Has a concern about medication side effects?: No Expresses concern over the cost of medications?: No Interventions/plans: Instruct on medication effects & side effects, Review medication list w/patient every two weeks, Instruct importance of taking meds as ordered & assist problem solving, Other additional 30-day Reassessments:: Progressing - Tobacco Use Tobacco Use: Non-smoker Do you use smokeless tobacco?: No 30-day Reassessments:: Progressing - Hypertension Hypertension Diagnosis:: Hypertension ICD-10 I10 Resting Blood Pressure:: 106/68 [place] [employer] Hypertension Guidelines: [place] [employer] Hypertension Guidelines. Normal BP Less than 120/80. Elevated BP 120/80. Hypertension Stage 1: BP 130-139/80-89. Hypertesnion Stage 2: BP 140 or higher/90 or higher. Hypertension Crisis: BP higher than 180/120 Peak Exercise Blood Pressure:: 148/80 Outcomes/Goals: Able to verbalize/achieve optimal blood pressure <130/80, Incorporates diet changes & exercise for blood pressure control by DC, Other additional outcomes/goals Interventions/plan: Instruct on optimal blood pressure, hypertension & medications, Instruct on effects of sodium, alcohol, stress, exercise &hypertension, Other additional plan/interventions 30 day Reassessments:: Progressing - Tobacco Cessation Referral Smoking Cessation Referral:: No Individual Education/Counseling:: No Education Schedule Given:: Yes Medical - Final Assessment Psychosocial - Initial Assess Psychosocial - 30-Day Assess Psychosocial - 60-Day Assess Psychosocial - 90-Day Assess - VIsit Date of Eval: 06/03/21 Session #:: 35 History of previous Mental disease:: No - Psychosocial Test Tool Used:: Ferrans Saturnino QOL Cardiac, PHQ-9 Questionnaire phq-9 Severity: Severity. 1-4 Minimal Depression. 5-9 Mild Depression. 10-14 Moderate Depression. 15-19 Moderately Sever Depression. 20-27 Severe Depression. Rule: - Outcomes/Goals: See list Psychosocial Outcomes/Goals:: ID's personal stressors & 2 strategies to manage stress by discharge, Other Additional outcome/goals: - Intervention/Plan: See List Interventions/Plan:: Assess stressors,coping strategies & signs of derpression on admission, Instruct/assist pt to develop coping & personal stress Mgt strategies, Refer to Behavioral Health if appropriate, Refer to Physician if appropriate, Instruct patient to recognize signs & symptoms of depression, Instruct patient to recog, Other additional plan/intervention - 30-day Reassessments: 30 day Reassessments:: Progressing Psychosocial - Final Assessmen Patient Health Questionnaire 90-Day Re-eval Assessment 1. Little interest or pleasure in doing things: Not at all 2. Feeling down, depressed, or hopeless: Not at all 3. Trouble falling or staying asleep, or sleeping too much: Not at all 4. Feeling tired or having little energy: Not at all 5. Poor appetite or overeating: Not at all 6. Feeling bad about yourself -- or that you are a failure or have let yourself or your family down: Not at all 7. Trouble concentrating on things, such as reading the newspaper or watching television: Not at all 8. Moving or speaking so slowly that other people could have noticed. Or the opposite - being so fidgety or restless that you have been moving around a lot more than usual: Not at all 9. Thoughts that you would be better off , or of hurting yourself in some way: Not at all How difficult have these problems made it for you to do your work, take care of things at home, or get along with other people?: Not difficult at all Total Score: 0 Self-Efficacy 90-Day Re-eval Assessment We would like to know how confident you are in doing certain activities. Please select your confidence level for:: Select your confidence level for the following using the scale 1-10 where 1 is not at all confident and 10 is totally confident. Your score is the average of all 6 responses. Fatigue: How confident are you that you can keep the fatigue caused by your disease from interfering with the things you want to do? Select Number: 10 Physical Discomfort or Pain: How confident are you that you can keep the physical discomfort or pain of your disease from interfering with the things you want to do? Select Number: 10 Emotional Distress: How confident are you that you can keep the emotional distress caused by your disease from interfering with the things you want to do? Select Number: 10 Other Symptoms or Health Problems: How confident are you that you can keep other symptoms or health problems from interfering with the things you want to do? Select Number: 10 Different Tasks and Activities: How confident are you that you can do the different tasks and activities needed to manage your health condition so as to reduce your need to see a doctor? Select Number: 10 Medication: How confident are you that you can do things other than just taking medication to reduce how much your illness affects your everyday life? Select Number: 10 Total Score:: 10 Nutrition Survey
[2021-06-03 09:27] VITALS: BP 106/68; BP 148/80; BMI 24.3
== END 2021-06-27 23:59 ==
LOC: CR 08:00
PROVIDERS: PCP Family Medicine; Referring Provider Internal Medicine Cardiovascular Disease; Visit Provider Internal Medicine Cardiovascular Disease
DX: I25.10 Atherosclerotic heart disease of native coronary artery without angina pectoris (principal); I44.7 Left bundle-branch block, unspecified; I10 Essential (primary) hypertension; E78.5 Hyperlipidemia, unspecified; R06.09 Other forms of dyspnea; Z95.5 Presence of coronary angioplasty implant and graft
CPT/HCPCS: 93798

== ENCOUNTER 2021-06-12 14:36 | Emergency (ER) | payer MEDICARE, SELFPAY ==
[2021-05-28 00:25] VITALS: BMI 25.2
[2021-06-12 14:37] VITALS: BP 140/112; PULSE 68; RESP 16; TEMP 36.7; O2SAT 98; BMI 23.4
--- NOTE | 2021-06-12 15:13 | EKG12_ITS ---
Test Reason : CP Blood Pressure : / mmHG Vent. Rate : 063 BPM Atrial Rate : 063 BPM P-R Int : 182 ms QRS Dur : 114 ms QT Int : 412 ms P-R-T Axes : 031 -69 054 degrees QTc Int : 421 ms Normal sinus rhythm Left axis deviation Inferior infarct , age undetermined Abnormal ECG Confirmed by AURORA LAWSON, MUKESH ([id number]), design editor TANYA FISH ([id number]) on 06/15/2021 9:53:11 AM Referred By: SHAGGY/RENITA Confirmed By:JONY SIMON MD
--- NOTE | 2021-06-12 15:13 | ED.VIS.CHEST ---
HPI History of Present Illness Chief Complaint: Chest Pain Informant: patient and spouse/S.O. Narrative Narrative: 70-year-old male presents to the emergency department with chest tightness. He had a stent to his LAD placed in February. He completed 12 weeks of cardiac rehab. 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 Ochoa. He states over the past several days he has been having short episodes of what he describes as angina which is a discomfort over the anterior left lateral chest. He states that last for seconds to a couple minutes and then resolves. He does not take any nitrates for it. He has been working out for the past 3 days and notes today is more fatigued. He was experiencing some chest tightness and thought it was possibly related to his asthma as he went to urgent care and they referred him here. [facility] Medical History (Updated 06/12/21 @ 15:[address] 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 02/28/21 [Rx Last Taken Unknown] aspirin 81 mg PO DAILY@0800 tablet 02/28/21 [Rx Last Taken Unknown] lisinopril 20 mg tablet 10 mg PO BREAKFAST tablet 03/03/21 [History Last Taken Unknown] metoprolol succinate 25 mg tablet,extended release 24 hr 12.5 mg PO QHS tablet 03/03/21 [History Last Taken Unknown] beclomethasone dipropionate 80 mcg/actuation HFA breath activated aerosol 2 inh INHALATION BID g 05/18/21 [History Last Taken Unknown] isosorbide mononitrate 30 mg PO DAILY #30 tab 06/12/21 [Rx Last Taken Unknown] Allergy/AdvReac Type Severity Reaction Status Date / Time montelukast [From Singulair] AdvReac nightmares Verified 03/13/21 11:28 Family History Father CAD (coronary artery disease) Myocardial infarction, Onset Age: 65 Mother COPD (chronic obstructive pulmonary disease) Uncle Sudden cardiac Surgical History History of coronary artery stent placement (02/27/21) Social History Smoking Status: Former smoker second hand exposure: No alcohol intake: current alcohol intake frequency: holidays/special occasions only Alcohol type: beer substance use type: does not use caffeine: No what type of physical activity do you participate in: walking frequency: daily duration: other seatbelt use: always do you feel safe at home: Yes ROS ROS ED Constitutional Constitutional ED: Denies chills or weight loss Eyes Eyes: Denies change in vision or diplopia ENT ENT ED: Denies ear pain, rhinorrhea or sore throat Cardiovascular Cardiovascular: Reports chest pain; Denies orthopnea, palpitations or racing heartbeat Respiratory/Chest Respiratory/Chest: Denies cough, dyspnea or orthopnea Gastrointestinal Gastrointestinal: Denies abdominal pain, diarrhea, nausea or vomiting Genitourinary Genitourinary ED: Denies dysuria, hematuria or urinary frequency Musculoskeletal Musculoskeletal: Denies arthralgias or myalgias Integumentary Denies abscess or rash Neurologic Neurologic: Denies headache(s) or weakness Psychiatric Psychiatric: Denies anxiety, depression, suicidal ideation or suicidal thoughts Endocrine Endocrinology: Denies polydipsia, polyphagia or polyuria Allergic/Immunologic Allergic/Immunologic ED: Denies mouth swelling, tongue swelling or urticaria EXAM Physical Exam Const Vital Signs: 06/12/21 14:37 06/12/21 15:36 06/12/21 16:10 Temperature 98.1 F Temperature Source Temporal Pulse Rate 68 62 61 Respiratory Rate 16 17 16 Blood Pressure 140/112 H 136/92 H 138/88 H Blood Pressure Mean 121 106 104 Pulse Ox 98 98 97 Oxygen Delivery Method Room Air Room Air Room Air Positive well nourished and well developed General Appearance ED: well developed HEENT Reports normocephalic, head/scalp atraumatic and moist mucous membranes Eyes PERRL and EOMs intact bilaterally Neck no lymphadenopathy, supple and no JVD Resp normal respiratory effort and clear to auscultation bilaterally Cardio regular rate, regular rhythm and no murmurs GI normal to inspection, nondistended, normoactive bowel sounds and non-tender Palpation: soft Back/Spine no CVA tenderness and normal ROM Extremity normal to inspection General Extremety ED: Negative for edema General Extremity: Negative for edema Neuro oriented x3 and CN's II-XII intact bilaterally Sensorium / Orientation: alert Motor Exam: strength 5/5 throughout Psych mental status grossly normal Mood & Affect: Negative for depressed or tearful Skin no rashes or lesions noted and no wounds Heart Score History: Slightly/Non-Suspicious ECG: Normal Age: >/= 65 years Risk Factors: >/= 3 Risk Factors or History of CAD Troponin: </= Normal Limit Score: 4 MDM MDM MDM Narrative Medical decision making narrative: My interpretation of the chest x-ray is no acute process. Patient is in a normal sinus rhythm with no concerning features of ACS. His troponin high-sensitivity is 3. I spoke with cardiology. We will add in isosorbide 30 mg daily. He will follow up in the office. Plan will be discharged home. Lab Data Attestation: I reviewed the patient's lab results. Labs: Laboratory Results - last 24 hr 06/12/21 06/12/21 14:45 14:45 WBC 7.4 RBC 5.61 Hgb 16.5 Hct 50.7 MCV 90.4 MCH 29.4 MCHC 32.5 RDW Std Deviation 45.3 H RDW Coeff of Julisa 13.6 Plt Count 204 MPV 8.8 Immature Gran % (Auto) 0.300 Neut % (Auto) 78.1 H Lymph % (Auto) 12.1 L [place] % (Auto) 8.2 Eos % (Auto) 0.8 Baso % (Auto) 0.5 Absolute Neuts (auto) 5.8 Absolute Lymphs (auto) 0.90 Nucleated RBC % 0 Sodium 140 Potassium 3.9 Chloride 108 H Carbon Dioxide 27.0 Anion Gap 5 BUN 16 Creatinine 1.09 Estim Creat Clear Calc 69.23 Est GFR (MDRD) Af Amer 85 Est GFR (MDRD) Non-Af 71 BUN/Creatinine Ratio 14.7 Glucose 112 H Calcium 8.8 Troponin I High Sens 3.0 Radiography Diagnostic Testing: Radiology Impression Chest X-Ray 06/12/21 15:15 IMPRESSION: No acute abnormality is seen. Electronically Signed: Kin Beasley MD at 15:28 EDT , Service support , EKG Initial EKG: Attestation: I personally reviewed and interpreted this EKG as follows: Treatment and Re-Evaluation Comments:: EKG shows a sinus rhythm at a rate of 63 bpm. No acute changes of ACS noted Discharge Plan Triage Chief Complaint: Chest Pain ED Provider: Gerson Fernandez Dx/Rx/DC Orders Clinical Impression: Chest pain Instructions: Taking Nitrates, ED Angina, Stable Prescriptions: New isosorbide mononitrate 30 mg tablet extended release 24 hr 30 mg PO DAILY Qty: 30 RF: 0 No Action albuterol sulfate [ProAir HFA] 90 mcg/actuation HFA aerosol inhaler 2 puff INHALATION Q6H PRN (Reason: Sob &/Or Wheezing) RF: 0 metoprolol succinate 25 mg tablet extended release 24 hr 12.5 mg PO QHS RF: 0 lisinopril 20 mg tablet 10 mg PO BREAKFAST RF: 0 ticagrelor 90 MG tablet 90 mg PO BID Qty: 60 RF: 11 atorvastatin 40 MG tablet 40 mg PO QHS Qty: 30 RF: 11 albuterol sulfate 2.5 MG/3 ML solution for nebulization 2.5 mg INHALATION Q4H PRN (Reason: SOB AND/OR WHEEZING) RF: 0 aspirin 81 MG tablet 81 mg PO DAILY@0800 RF: 0 Qvar RediHaler 80 mcg/actuation HFA aerosol breath activated 2 inh inhalation BID RF: 0 Primary Care Provider: Sim Weir Referrals: Buster Ochoa MD [STAFF PHYSICIAN] - As soon as possible Sim Weir MD [Primary Care Provider] - Disposition Disposition: Home, Self Care
--- NOTE | 2021-06-12 15:15 | RAD_ITS ---
STUDY: X-RAY CHEST REASON FOR EXAM: Male, 70 years old. Chest pain TECHNIQUE: Single AP portable view of the chest. COMPARISON: Comparison is made with prior study dated 03/04/2021. FINDINGS: EKG electrodes are seen. The lungs are clear and expanded. There is no demonstrated pleural abnormality. Normal size heart. Normal mediastinum and jovani. Normal visualized pulmonary arteries. There is atherosclerotic tortuosity of the aortic arch and descending thoracic aorta. There are diffuse degenerative changes of the visualized thoracic spine. Normal visualized ribs, clavicles, and shoulders. There is no demonstrated abnormality of the visualized soft tissue structures of the upper abdomen. RAD/Chest 1 View (Portable) IMPRESSION: No acute abnormality is seen. Electronically Signed: Kin Beasley MD at 15:28 EDT , Service support ,
[2021-06-12] MEDS: Aspirin 81 MG TAB.CHEW 324 MG PO (15:21)
[2021-06-12 15:22] LABS: Absolute Neutrophil Count 5.8 X10^3/uL (2.0-7.7); Basophil# 0.04 X10^3/uL; Basophil% 0.5 % (0-1); Eosinophil# 0.06 X10^3/uL; Eosinophils% 0.8 % (0-5); Hematocrit 50.7 % (40-54); Hemoglobin 16.5 g/dL (13.0-16.5); Lymphocyte % 12.1 % (19-41); Mean Corp Hgb Conc 32.5 g/dL (32-36); Mean Corpuscular Hgb 29.4 pg (27.0-32.0); Mean Corpuscular Volume 90.4 fL (80-94); Mean Platelet Vol. 8.8 fl (6.2-12.0); Monocyte# 0.61 X10^3/uL; Monocyte% 8.2 % (0-10); NRBC Flagged by Analyzer 0 % (0-5); Neutrophil % 78.1 % (47-70); Platelet Count 204 K/mm3 (150-450); RBC Distribution Width CV 13.6 % (11.6-14.6); RBC Distribution Width SD 45.3 fl (35.1-43.9); Red Blood Count 5.61 M/mm3 (4.6-6.2); White Blood Count 7.4 K/mm3 (4.4-11.0)
[2021-06-12 15:35] LABS: Anion Gap 5 (5-15); BUN 16 mg/dL (7-18); BUN/Creat Ratio 14.7 RATIO (10-20); Calcium,Total 8.8 mg/dL (8.5-10.1); Chloride 108 mmol/L (98-107); Creatinine, Serum 1.09 mg/dL (0.70-1.30); EST Glomerular Filtration Rate 71 mL/min (>60); Est Glom Filt Rate - Afr Amer 85 mL/min (>60); Estimated Creatinine Clearance 69.23 ml/min; Glucose 112 mg/dL (74-106); Potassium 3.9 mmol/L (3.5-5.1); Sodium Level 140 mmol/L (136-145)
[2021-06-12 15:36] VITALS: BP 136/92; PULSE 62; RESP 17; O2SAT 98
[2021-06-12 16:10] VITALS: BP 138/88; PULSE 61; RESP 16; O2SAT 97
== END 2021-06-12 16:49 | disposition home or self-care (01) ==
PROVIDERS: Emergency Provider Emergency Medicine; PCP Family Medicine
DX: R07.89 Other chest pain (principal); I10 Essential (primary) hypertension; E78.5 Hyperlipidemia, unspecified; J45.40 Moderate persistent asthma, uncomplicated; I25.10 Atherosclerotic heart disease of native coronary artery without angina pectoris; Z95.5 Presence of coronary angioplasty implant and graft; Z79.82 Long term (current) use of aspirin; Z79.899 Other long term (current) drug therapy; Z87.891 Personal history of nicotine dependence
CPT/HCPCS: 71045; 80048; 84484; 85025; 93005; 99284; A4216

== ENCOUNTER 2021-12-16 08:24 | Outpatient (CLI) | payer MEDICARE, SELFPAY ==
[2021-12-16 09:37] LABS: AST(SGOT) 21 U/L (15-37); Alanine Aminotransfer ALT/SGPT 39 U/L (16-61); Albumin, Serum 3.5 g/dL (3.2-5.0); Alkaline Phosphatase 98 U/L (45-117); Bilirubin, Direct 0.23 mg/dL (0.00-0.30); Cholesterol 141 mg/dL (200); Globulin 3.7 g/dL (2.2-4.2); High Density Lipoprotein 53 mg/dL; Protein, Total 7.2 g/dL (6.4-8.2); Triglycerides 69 mg/dL; Very Low Density Lipoprotein 14 mg/dL (5-40)
== END 2021-12-16 23:59 | disposition short-term general hospital (02) ==
PROVIDERS: PCP Family Medicine; Visit Provider Physician Assistant Medical
DX: E78.00 Pure hypercholesterolemia, unspecified (principal)
CPT/HCPCS: 36415; 80061; 80076

== ENCOUNTER → 2022-06-08 | Outpatient (CLI) | payer MEDICARE, SELFPAY ==
[2022-06-08 07:47] LABS: AST(SGOT) 19 U/L (15-37); Alanine Aminotransfer ALT/SGPT 25 U/L (16-61); Albumin, Serum 3.6 g/dL (3.2-5.0); Alkaline Phosphatase 89 U/L (45-117); Bilirubin, Direct 0.24 mg/dL (0.00-0.30); Cholesterol 164 mg/dL (200); Globulin 3.5 g/dL (2.2-4.2); High Density Lipoprotein 54 mg/dL; Protein, Total 7.1 g/dL (6.4-8.2); Triglycerides 99 mg/dL; Very Low Density Lipoprotein 20 mg/dL (5-40)
== END | disposition home or self-care (01) ==
LOC: LAB 07:01
PROVIDERS: PCP Family Medicine; Referring Provider Internal Medicine Cardiovascular Disease; Visit Provider Internal Medicine Cardiovascular Disease
DX: E78.00 Pure hypercholesterolemia, unspecified (principal); E78.5 Hyperlipidemia, unspecified
CPT/HCPCS: 36415; 80061; 80076

== ENCOUNTER → 2022-08-26 | Outpatient (CLI) | payer MEDICARE, SELFPAY ==
[2022-09-02 08:09] LABS: Alternaria tenuis <0.10 kU/L (Class 0); Ash, White 0.11 kU/L (Class 0/I); Aspergillus fumigatus <0.10 kU/L (Class 0); Bermuda Grass 0.11 kU/L (Class 0/I); Birch <0.10 kU/L (Class 0); Black Walnut 0.15 kU/L (Class 0/I); Cat Hair / Dander,Stand <0.10 kU/L (Class 0); Cedar, Mountain 0.15 kU/L (Class 0/I); Cladosporium herbarum <0.10 kU/L (Class 0); Cockroach, American 0.11 kU/L (Class 0/I); D farinae Mite <0.10 kU/L (Class 0); D pteronyssinus <0.10 kU/L (Class 0); Dog Epithelia <0.10 kU/L (Class 0); Elm, American White 0.12 kU/L (Class 0/I); Immunoglobulin E 67 IU/mL (6-495); Maple/Box Elder 0.12 kU/L (Class 0/I); Mulberry, White <0.10 kU/L (Class 0); Oak, White 0.13 kU/L (Class 0/I); Pecan 0.11 kU/L (Class 0/I); Penicillium Notatum <0.10 kU/L (Class 0); Ragweed, Short/Common 0.12 kU/L (Class 0/I); Russian Thistle 0.12 kU/L (Class 0/I); Sheep Sorrel 0.13 kU/L (Class 0/I); Sycamore, American 0.14 kU/L (Class 0/I); Timothy Grass 0.11 kU/L (Class 0/I)
[2022-09-02 12:27] LABS: Mouse Urine <0.10 kU/L (Class 0)
== END | disposition home or self-care (01) ==
LOC: LAB 08:03
PROVIDERS: PCP Family Medicine; Referring Provider Otolaryngology; Visit Provider Otolaryngology
DX: T78.40XA Allergy, unspecified, initial encounter (principal)
CPT/HCPCS: 36415; 82785; 86003

== ENCOUNTER 2023-05-01 07:48 | Emergency (ER) | payer MEDICARE, SELFPAY ==
[2023-05-01 07:49] VITALS: BP 141/98; PULSE 68; RESP 18; TEMP 35.7; O2SAT 97; BMI 24.5
--- NOTE | 2023-05-01 08:02 | EKG12_ITS ---
Test Reason : CP Blood Pressure : / mmHG Vent. Rate : 063 BPM Atrial Rate : 063 BPM P-R Int : 186 ms QRS Dur : 112 ms QT Int : 412 ms P-R-T Axes : 019 -59 024 degrees QTc Int : 421 ms Normal sinus rhythm Left anterior fascicular block Cannot rule out Inferior infarct (cited on or before 28-FEB-2021) Abnormal ECG Confirmed by ANDREIA LAWSON, JENN ([id number]), newspaper or periodical editor TANYA FISH ([id number]) on 05/02/2023 11:36:49 AM Referred By: HORTENSIA Confirmed By:JENN BOSWELL MD
--- NOTE | 2023-05-01 08:03 | EDS_ITS ---
HPI History of Present Illness Chief Complaint: Chest Pain Narrative Narrative: 72-year-old male past medical history of asthma, former smoking disease, hypertension, hyperlipidemia, coronary artery disease with stenting, presents with sharp, left-sided chest pain that began on , 4 days ago. 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 It was in the evening. He went into use his Qvar inhaler, and a had a sharp pain on the left side of his chest. His was concerned because this is where when he had his stent placed he was having pain. He denies any nausea or vomiting. He states that over the next few days, he has had chest tightness, but no fevers or chills. He states his chest feels congested. He has had walking pneumonia in the past. Feels mildly short of breath. He has been using his inhaler without relief. Quite frankly, he states he is here to make sure that it is not his heart because he is not sure if this sharp pain was his asthma, coronary artery disease/ACS, versus something different such as mus culoskeletal chest pain. [facility] Medical History Asthma, moderate persistent Atherosclerotic heart disease of [place] coronary artery without angina pectoris Dyspnea on exertion Essential (primary) hypertension [place] lung disease Hyperlipidemia Incomplete left bundle branch block Injury of artery of right upper extremity Left inguinal hernia Sinus congestion Home Medications aspirin 81 mg tablet,delayed release 81 mg PO DAILY@0800 02/28/21 [Rx Last Taken Unknown] vit C 250 mg-E 90 mg-zinc 40 mg-copper 1 [id number] chew tablet (PreserVision AREDS-2) 1 tab PO QAM AND QPM 07/12/22 [History Last Taken Unknow n] metoprolol succinate 25 mg tablet,extended release 24 hr 12.5 mg PO QHS #45 tabs 07/13/22 [Rx Last Taken Unknown] rosuvastatin 5 mg tablet (Crestor) 5 mg PO .QOD #45 tabs 09/23/22 [Rx Last Taken Unknown] lisinopril 10 mg tablet 10 mg PO DAILY #90 tabs 02/14/23 [Rx Last Taken Unknown] cetirizine 10 mg capsule (Zyrtec) 10 mg PO DAILY itching 04/12/23 [History Last Taken Unknown] beclomethasone dipropionate 80 mcg/actuation HFA breath activated aerosol (Qvar RediHaler) 2 inh inhalation Q12H #10.6 grams 04/18/23 [Rx Last Taken Unknown] albuterol sulfate 90 mcg/actuation aerosol inhaler (ProAir HFA) 2 puff inhalation Q6H PRN Sob &/Or Wheezing #8.5 grams 04/19/23 [Rx Last Taken Unknown] Allergy/AdvReac Type Severity Reaction Status Date / Time atorvastatin AdvReac Intermediate myalgias Verified 04/12/23 06:51 montelukast [From Singulair] AdvReac nightmares Verified 04/12/23 06:51 Family History Father CAD (coronary artery disease) Myocardial infarction, Onset Age: 65 Mother COPD (chronic obstructive pulmonary disease) Uncle Sudden cardiac Surgical History History of coronary artery stent placement (02/27/21) Social History Smoking Status: Former smoker second hand exposure: No alcohol intake: current alcohol intake frequency: holidays/special occasions only Alcohol type: beer substance use type: does not use caffeine: No what type of physical activity do you participate in: walking frequency: daily duration: other seatbelt use: always do you feel safe at home: Yes ROS ROS ED ROS Narrative Constitutional: No fever, no chills. No diaphoresis. HEENT: No sore throat. No neck pain. No loss of vision. No rhinorrhea. Cardiovascular: Sharp, left pectoral chest pain. No palpitations. No pedal edema. Respiratory: No cough, chest feels congested, mild shortness of breath with chest tightness. Abdominal: No abdominal pain. No nausea. No vomiting. Genitourinary: No dysuria. No hematuria. Musculoskeletal: No myalgias. No arthralgias. Neurologic: No headaches. No dizziness. No lightheadedness. Skin: No rash. No change in color. Psychiatric: No depression. No anxiety. EXAM Physical Exam Narrative Exam Narrative: Afebrile. Vital signs noted. HEENT: Normocephalic. Atraumatic. PERRL, EOMI. Neck soft and supple. No point tenderness or step off. Cardiovascular: Regular rate and rhythm. No murmurs, rubs, or gallops appreciated. Respiratory: No tachypnea. Lungs clear to auscultation bilaterally. Speaking in full sentences. Resting with head of bed at 30 degrees. Moving a good amount of air. Gastrointestinal: Abdomen soft, nontender, with normoactive bowel sounds. No rebound or guarding. Neurological: Awake. Alert. Nonfocal, nonlateralizing. Skin: No rash. Normal color. No pallor. Musculoskeletal: No pedal edema. Full range of motion extremities. Const Vital Signs: 05/01/23 07:49 05/01/23 08:11 05/01/23 08:21 Temperature 96.2 F L Temperature Source Temporal Pulse Rate 68 Respiratory Rate 18 Respiratory Effort Normal Non-Labored Blood Pressure 141/98 H Blood Pressure Mean 112 Pulse Ox 97 Oxygen Delivery Method Room Air Room Air Heart Score History: Slightly/Non-Suspicious ECG: Normal Age: >/= 65 years Risk Factors: >/= 3 Risk Factors or History of CAD Score: 4 MDM MDM MDM Narrative Medical decision making narrative: I reviewed the patient's prior records./Stenting was 2 years ago. He does not come to the emergency department frequently for complaints of chest pain. Chest pain work-up was pursued. In the differential diagnosis is non-STEMI as his pain actually began 3 to 4 days ago and is very briefly intermittent. It is less likely that this is cardiac pain, but he does have risk factors. I do feel that a single troponin would help in ruling out ischemic disease. EKG was obtained and interpreted by myself and it shows normal sinus rhythm at 63 bpm without ectopy or acute ST changes. No STEMI. Chest x-ray will be obtained to help rule out pneumonia. He may be having more of an asthma exacerbation, but he is not in distress and his pulse ox is 97% on room air without evidence of hypoxia. That sharp, fleeting pain could be more nerve/musculoskeletal pain. I reviewed the patient's laboratory work, he has a normal white count of 5.7, hemoglobin normal at 16.5, hematocrit normal at 51.4, normal platelet count of 187. Electrolyte panel shows slightly elevated chloride of 109, normal BUN slightly elevated at 20 which think is nonspecific, normal creatinine of 1.0. His high-sensitivity troponin is 4. I do feel this is greater than a 6-hour troponin and I do not feel that serial enzymes are indicated. His previous troponin over a year ago was 3. I do not see a significant change from his baseline. Chest x-ray interpreted by myself shows no evidence of an acute process, no pneumothorax or consolidation. I do not feel antibiotics are indicated. I reviewed the radiology report which confirms my independent interpretation. At this point in time, I do feel that his pain might be more musculoskeletal, and shortness of breath related more to his asthma. He will use his rescue inhaler every 6 hours over the next few days as needed. He states he usually only uses that twice a week. We will take [id number] analgesics as needed and follow-up with his primary care provider. I feel he can be discharged safely home with follow-up. Return instructions to the emergency department were reviewed. Disposition is discharged home in stable condition. History & Record Review Discussion w/independent historian: Patient and Family Additional record(s) reviewed:: Prior ED visit and Prior labs Lab Data Attestation: I reviewed the patient's lab results. Labs: Laboratory Results - last 24 hr 05/01/23 05/01/23 08:10 08:10 WBC 5.7 RBC 5.56 Hgb 16.5 Hct 51.4 MCV 92.4 MCH 29.7 MCHC 32.1 RDW Std Deviation 45.5 H RDW Coeff of Julisa 13.3 Plt Count 187 MPV 8.9 Immature Gran % (Auto) 0.400 Neut % (Auto) 71.3 H Lymph % (Auto) 16.1 L [place] % (Auto) 9.4 Eos % (Auto) 2.1 Baso % (Auto) 0.7 Absolute Neuts (auto) 4.0 Absolute Lymphs (auto) 0.91 Nucleated RBC % 0 Sodium 142 Potassium 4.1 Chloride 109 H Carbon Dioxide 27.0 Anion Gap 6 BUN 20 H Creatinine 1.01 Estim Creat Clear Calc 72.52 Est GFR (MDRD) Af Amer 93 Est GFR (MDRD) Non-Af 77 BUN/Creatinine Ratio 19.8 Glucose 95 Calcium 9.3 Troponin I High Sens 4 Radiography Diagnostic Testing: Clinical Impression(s) from Imaging Studies Chest X-Ray 05/01/23 08:15 IMPRESSION: No radiographic evidence of acute cardiopulmonary disease. Electronically Signed: Zaynab Lew MD at 8:33 EDT , Discharge Plan Triage Chief Complaint: Chest Pain Other Complaint: Shortness of Breath ED Provider: Levon Clemente Dx/Rx/DC Orders Clinical Impression: Chest pain, History of coronary artery stent placement, Asthma, moderate persistent Instructions: ED Asthma, Acute (Adult), ED Chest Pain, Uncertain Cause Prescriptions: No Action Zyrtec 10 mg capsule 10 mg PO DAILY aspirin 81 MG tablet 81 mg PO DAILY@0800 0RF PreserVision AREDS-2 250-90-40-1 mg tablet,chewable 1 tab PO QAM AND QPM metoprolol succinate 25 mg tablet extended release 24 hr 12.5 mg PO QHS Qty: 45 3RF rosuvastatin [Crestor] 5 mg tablet 5 mg PO .QOD Qty: 45 3RF lisinopril 10 mg tablet 10 mg PO DAILY Qty: 90 3RF Qvar RediHaler 80 mcg/actuation HFA aerosol breath activated 2 inh inhalation Q12H Qty: 10.6 6RF albuterol sulfate [ProAir HFA] 90 mcg/actuation HFA aerosol inhaler 2 puff INHALATION Q6H PRN (Reason: Sob &/Or Wheezing) Qty: 8.5 11RF Primary Care Provider: Sim Weir Referrals: Sim Weir MD [Primary Care Provider] - 1-2 Days if not improving Disposition Disposition: Home, Self Care
--- NOTE | 2023-05-01 08:15 | RAD_ITS ---
INDICATION: chest pain EXAMINATION/TECHNIQUE: X-RAY - XR Chest 1 View COMPARISON: June 12, 2021 FINDINGS: LINES/DEVICES: None. LUNGS: No consolidation, edema or effusion. No pneumothorax. MEDIASTINUM AND CARDIOVASCULAR STRUCTURES: Cardiac silhouette not enlarged. Central airways and mediastinal contour are unremarkable. BONES AND SOFT TISSUES: Unremarkable. RAD/Chest 1 View (Portable) IMPRESSION: No radiographic evidence of acute cardiopulmonary disease. Electronically Signed: Zaynab Lew MD at 8:33 EDT ,
[2023-05-01 08:40] LABS: Absolute Lymphocyte Count 0.91 X10^3/uL (0.83-4.51); Basophil# 0.04 X10^3/uL; Basophil% 0.7 % (0-1); Eosinophil# 0.12 X10^3/uL; Eosinophils% 2.1 % (0-5); Hematocrit 51.4 % (40-54); Hemoglobin 16.5 g/dL (13.0-16.5); Lymphocyte # 0.91 X10^3/ul (0.83-4.51); Lymphocyte % 16.1 % (19-41); Mean Corp Hgb Conc 32.1 g/dL (32-36); Mean Corpuscular Hgb 29.7 pg (27.0-32.0); Mean Corpuscular Volume 92.4 fL (80-94); Mean Platelet Vol. 8.9 fl (6.2-12.0); Monocyte# 0.53 X10^3/uL; Monocyte% 9.4 % (0-10); NRBC Flagged by Analyzer 0 % (0-5); Neutrophil # 4.03 X10^3/uL (2.7-7.7); Neutrophil % 71.3 % (47-70); Platelet Count 187 K/mm3 (150-450); RBC Distribution Width CV 13.3 % (11.6-14.6); RBC Distribution Width SD 45.5 fl (35.1-43.9); Red Blood Count 5.56 M/mm3 (4.6-6.2); White Blood Count 5.7 K/mm3 (4.4-11.0)
[2023-05-01 08:46] LABS: Anion Gap 6 (5-15); BUN 20 mg/dL (7-18); BUN/Creat Ratio 19.8 RATIO (10-20); Calcium,Total 9.3 mg/dL (8.5-10.1); Chloride 109 mmol/L (98-107); Creatinine, Serum 1.01 mg/dL (0.70-1.30); EST Glomerular Filtration Rate 77 mL/min (>60); Est Glom Filt Rate - Afr Amer 93 mL/min (>60); Estimated Creatinine Clearance 72.52 ml/min; Glucose 95 mg/dL (74-106); Potassium 4.1 mmol/L (3.5-5.1); Sodium Level 142 mmol/L (136-145); Troponin-I HS 4 pg/mL (3.0-78.0)
[2023-05-01 08:49] VITALS: BP 124/91; PULSE 59; RESP 10; O2SAT 98
[2023-05-01 09:00] VITALS: RESP 12
== END 2023-05-01 09:07 | disposition home or self-care (01) ==
PROVIDERS: Emergency Provider Emergency Medicine; PCP Family Medicine; Visit Provider Emergency Medicine
DX: R07.9 Chest pain, unspecified (principal); E78.5 Hyperlipidemia, unspecified; Z87.891 Personal history of nicotine dependence; Z95.5 Presence of coronary angioplasty implant and graft; I10 Essential (primary) hypertension; I25.10 Atherosclerotic heart disease of native coronary artery without angina pectoris; J45.40 Moderate persistent asthma, uncomplicated; Z79.82 Long term (current) use of aspirin; Z79.899 Other long term (current) drug therapy; Z79.51 Long term (current) use of inhaled steroids
CPT/HCPCS: 71045; 80048; 84484; 85025; 93005; 99284; A4216

== ENCOUNTER 2023-09-22 04:09 | Emergency (ER) | payer MEDICARE, SELFPAY ==
[2023-09-22 04:10] VITALS: BP 136/91; BP 143/100; PULSE 67; PULSE 69; RESP 12; TEMP 36.3; O2SAT 98; BMI 24.1
[2023-09-22 04:30] LABS: Absolute Lymphocyte Count 1.16 X10^3/uL (0.83-4.51); Absolute Neutrophil Count 3.6 X10^3/uL (2.0-7.7); Basophil# 0.04 X10^3/uL; Basophil% 0.7 % (0-1); Eosinophils% 3.5 % (0-5); Hematocrit 49.2 % (40-54); Lymphocyte # 1.16 X10^3/ul (0.83-4.51); Lymphocyte % 20.5 % (19-41); Mean Corp Hgb Conc 32.5 g/dL (32-36); Mean Corpuscular Hgb 29.3 pg (27.0-32.0); Mean Corpuscular Volume 90.1 fL (80-94); Mean Platelet Vol. 8.5 fl (6.2-12.0); Monocyte# 0.68 X10^3/uL; NRBC Flagged by Analyzer 0 % (0-5); Neutrophil # 3.58 X10^3/uL (2.7-7.7); Neutrophil % 63.1 % (47-70); Platelet Count 178 K/mm3 (150-450); RBC Distribution Width CV 13.3 % (11.6-14.6); RBC Distribution Width SD 43.6 fl (35.1-43.9); Red Blood Count 5.46 M/mm3 (4.6-6.2); White Blood Count 5.7 K/mm3 (4.4-11.0)
[2023-09-22] MEDS: Aspirin 81 MG TAB.CHEW 324 MG PO (04:33)
--- NOTE | 2023-09-22 04:40 | RAD_ITS ---
EXAM: XR CHEST, 1 VIEW CLINICAL INDICATION: chest pain TECHNIQUE: Frontal view of the chest. COMPARISON: 05/01/2023. FINDINGS: LUNGS AND PLEURAL SPACES: Unremarkable. No consolidation or edema. No pneumothorax. No effusion. HEART: Unremarkable. Cardiac silhouette not enlarged. MEDIASTINUM: Central airways and mediastinal contour are unremarkable. BONES/JOINTS: Unremarkable. SOFT TISSUES: Unremarkable. RAD/Chest 1 View (Portable) IMPRESSION: No acute cardiopulmonary abnormality. Electronically Signed: Landry Manzanares MD at 5:12 EDT ,
--- NOTE | 2023-09-22 04:42 | EDS_ITS ---
HPI History of Present Illness Chief Complaint: Chest Pain Informant: patient and spouse/S.O. Onset/Context/Timing Onset: Yesterday Activity at onset: gradual Timing: Waxes and wanes Quality: Positive for Pain Location: Left Chest Narrative Narrative: Patient present secondary to chest pain. He has a history of coronary disease with cardiac stent placed in 2020. He also has a history of asthma. 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 He states he will often get this after exerting himself and may last for couple days. Last night he was unable to fall asleep and states he could feel his heart beating and that is not normal. He was last seen by cardiology about 1 month ago. They wanted to order an outpatient stress test and that is still pending at this time. While lying at rest he does not feel as if he is wheezing or having shortness of breath. [facility] Medical History Asthma, moderate persistent Atherosclerotic heart disease of [place] coronary artery without angina pectoris Dyspnea on exertion Essential (primary) hypertension [place]' lung disease Hyperlipidemia Incomplete left bundle branch block Injury of artery of right upper extremity Left inguinal hernia Sinus congestion Home Medications aspirin 81 mg tablet,delayed release 81 mg PO DAILY@0800 02/28/21 [Rx Last Taken Unknown] vit C 250 mg-E 90 mg-zinc 40 mg-copper 1 hk-mivsnq-yymlsz chew tablet (PreserVision AREDS-2) 1 tab PO QAM AND QPM 07/12/22 [History Last Taken Unknown] metoprolol succinate 25 mg tablet,extended release 24 hr 12.5 mg (1/2 x 25 mg) PO QHS #45 tabs 07/13/22 [Rx Last Taken Unknown] lisinopril 10 mg tablet 10 mg PO DAILY #90 tabs 02/14/23 [Rx Last Taken Unknown] cetirizine 10 mg capsule (Zyrtec) 10 mg PO DAILY itching 04/12/23 [History Last Taken Unknown] beclomethasone dipropionate 80 mcg/actuation HFA breath activated aerosol (Qvar RediHaler) 2 inh inhalation Q12H #10.6 grams 04/18/23 [Rx Last Taken Unknown] albuterol sulfate 90 mcg/actuation aerosol inhaler (ProAir HFA) 2 puff inhalation Q6H PRN Sob &/Or Wheezing #8.5 grams 04/19/23 [Rx Last Taken Unknown] rosuvastatin 10 mg tablet 10 mg PO .QOD #45 tabs 09/12/23 [Rx Last Taken Unknown] Allergy/AdvReac Type Severity Reaction Status Date / Time atorvastatin AdvReac Intermediate myalgias Verified 09/22/23 04:13 montelukast [From Singulair] AdvReac nightmares Verified 09/22/23 04:13 Family History Father CAD (coronary artery disease) Myocardial infarction, Onset Age: 65 Mother COPD (chronic obstructive pulmonary disease) Uncle Sudden cardiac Surgical History History of coronary artery stent placement (02/27/21) Social History Smoking Status: Former smoker second hand exposure: No alcohol intake: current alcohol intake frequency: holidays/special occasions only Alcohol type: beer substance use type: does not use caffeine: No what type of physical activity do you participate in: walking frequency: daily duration: other seatbelt use: always do you feel safe at home: Yes ROS ROS ED Constitutional Constitutional ED: Denies chills or fever(s) Eyes Eyes: Denies change in vision ENT ENT ED: Denies rhinorrhea or sore throat Cardiovascular Cardiovascular: Reports chest pain; Denies palpitations or racing heartbeat Respiratory/Chest Respiratory/Chest: Reports dyspnea; Denies cough Gastrointestinal Gastrointestinal: Denies abdominal pain, nausea or vomiting Genitourinary Genitourinary ED: Denies dysuria Musculoskeletal Musculoskeletal: Denies back pain or extremity pain Integumentary Denies Abrasions or rash Neurologic Neurologic: Denies headache(s) or weakness Psychiatric Psychiatric: Denies anxiety or depression Allergic/Immunologic Allergic/Immunologic ED: Denies lip swelling or urticaria EXAM Physical Exam Const Vital Signs: 09/22/23 04:10 09/22/23 04:10 09/22/23 04:23 Temperature 97.3 F L Temperature Source Temporal Pulse Rate 69 67 Respiratory Rate 12 12 Blood Pressure 143/100 H 136/91 H Blood Pressure Mean 114 106 Pulse Ox 98 98 Oxygen Delivery Method Room Air Room Air Room Air 09/22/23 05:06 Temperature Temperature Source Pulse Rate 64 Respiratory Rate 15 Blood Pressure 132/101 H Blood Pressure Mean 111 Pulse Ox 96 Oxygen Delivery Method Room Air Positive well nourished and well developed General Appearance ED: well developed HEENT Reports moist mucous membranes Eyes EOMs intact bilaterally Neck no lymphadenopathy Chest Wall inspection of chest normal and palpation of chest normal Resp normal respiratory effort and clear to auscultation bilaterally Cardio regular rate and regular rhythm GI normal to inspection, nondistended, normoactive bowel sounds and soft to palpation Extremity normal to inspection Neuro oriented x3 and no sensory deficits noted Motor Exam: strength 5/5 throughout Psych mental status grossly normal Skin no rashes or lesions noted Heart Score History: Slightly/Non-Suspicious ECG: Normal Age: >/= 65 years Risk Factors: >/= 3 Risk Factors or History of CAD Troponin: </= Normal Limit Score: 4 MDM MDM MDM Narrative Medical decision making narrative: Patient placed on athletic monitor. Patient given aspirin. EKG obtained to evaluate for cardiac arrhythmia/ischemia. Chest x-ray obtained to evaluate for acute lung pathology, cardiac size, or mediastinal abnormality. Labwork obtained to evaluate for leukocytosis, anemia, and electrolyte derangement. History & Record Review Discussion w/independent historian: Patient and Family Additional record(s) reviewed:: Prior outpatient record, Prior ED visit and Prior labs Lab Data Attestation: I reviewed the patient's lab results. Labs: Laboratory Results - last 24 hr 09/22/23 04:20 WBC 5.7 RBC 5.46 Hgb 16.0 Hct 49.2 MCV 90.1 MCH 29.3 MCHC 32.5 RDW Std Deviation 43.6 RDW Coeff of Julisa 13.3 Plt Count 178 MPV 8.5 Immature Gran % (Auto) 0.200 Neut % (Auto) 63.1 Lymph % (Auto) 20.5 [place] % (Auto) 12.0 H Eos % (Auto) 3.5 Baso % (Auto) 0.7 Absolute Neuts (auto) 3.6 Absolute Lymphs (auto) 1.16 Nucleated RBC % 0 Sodium 140 Potassium 4.2 Chloride 109 H Carbon Dioxide 27.0 Anion Gap 4 L BUN 21 H Creatinine 1.01 Estim Creat Clear Calc 71.42 Est GFR (MDRD) Af Amer 93 Est GFR (MDRD) Non-Af 77 BUN/Creatinine Ratio 20.8 H Glucose 102 Calcium 8.7 Troponin I High Sens 5 Radiography Chest X-Ray - ED: 1 View, Read by ED Physician, Normal, Heart, Lungs and Mediastinum Diagnostic Testing: Clinical Impression(s) from Imaging Studies Chest X-Ray 09/22/23 04:40 IMPRESSION: No acute cardiopulmonary abnormality. Electronically Signed: Landry Manzanares MD at 5:12 EDT , EKG Initial EKG: Attestation: I personally reviewed and interpreted this EKG as follows: Interpretation: Sinus Rhythm (Sinus at 67 with no acute ischemia.) Treatment and Re-Evaluation :: CBC was normal white count 5.7 with a hemoglobin of 16. Differential unremarkable. Chemistry studies reveal a BUN of 21 creatinine 1.01. Troponin is normal at 5. Portable chest x-ray per my interpretation reveals no acute abnormalities. Radiology interpretation is reviewed and agrees. EKG is sinus rhythm with no evidence of acute ischemia. Repeat evaluation patient is resting comfortably. Test results discussed with he and at bedside. Patient has had symptoms for 14 hours at the time of my initial exam. I do not think he needs a repeat troponin. He was encouraged to call Dr. Ochoa's office today as he has ordered a stress test but has not yet been scheduled. Return instructions were given. Patient and both comfortable with the plan. Discharge Plan Triage Chief Complaint: Chest Pain ED Provider: Tahira Amaral Dx/Rx/DC Orders Clinical Impression: Chest pain Instructions: ED Chest Pain, Uncertain Cause Prescriptions: No Action Zyrtec 10 mg capsule 10 mg PO DAILY aspirin 81 MG tablet 81 mg PO DAILY@0800 0RF PreserVision AREDS-2 250-90-40-1 mg tablet,chewable 1 tab PO QAM AND QPM metoprolol succinate 25 mg tablet extended release 24 hr 12.5 mg PO QHS Qty: 45 3RF lisinopril 10 mg tablet 10 mg PO DAILY Qty: 90 3RF Qvar RediHaler 80 mcg/actuation HFA aerosol breath activated 2 inh inhalation Q12H Qty: 10.6 6RF albuterol sulfate [ProAir HFA] 90 mcg/actuation HFA aerosol inhaler 2 puff INHALATION Q6H PRN (Reason: Sob &/Or Wheezing) Qty: 8.5 11RF rosuvastatin 10 mg tablet 10 mg PO .QOD Qty: 45 3RF Primary Care Provider: Sim Weir Referrals: Buster Ochoa MD [Med Staff - Active Staff] - As soon as possible Sim Weir MD [Primary Care Provider] - Disposition Disposition: Home, Self Care
[2023-09-22 04:58] LABS: Anion Gap 4 (5-15); BUN 21 mg/dL (7-18); BUN/Creat Ratio 20.8 RATIO (10-20); Calcium,Total 8.7 mg/dL (8.5-10.1); Chloride 109 mmol/L (98-107); Creatinine, Serum 1.01 mg/dL (0.70-1.30); EST Glomerular Filtration Rate 77 mL/min (>60); Est Glom Filt Rate - Afr Amer 93 mL/min (>60); Estimated Creatinine Clearance 71.42 ml/min; Glucose 102 mg/dL (74-106); Potassium 4.2 mmol/L (3.5-5.1); Sodium Level 140 mmol/L (136-145); Troponin-I HS 5 pg/mL (3.0-78.0)
[2023-09-22 05:06] VITALS: BP 132/101; PULSE 64; RESP 15; O2SAT 96
[2023-09-22 05:49] VITALS: BP 129/98; PULSE 63; RESP 12; O2SAT 96
== END 2023-09-22 05:55 | disposition home or self-care (01) ==
PROVIDERS: Emergency Provider Emergency Medicine; PCP Family Medicine; Visit Provider Emergency Medicine
DX: R07.9 Chest pain, unspecified (principal); E78.5 Hyperlipidemia, unspecified; I10 Essential (primary) hypertension; Z87.891 Personal history of nicotine dependence; I25.10 Atherosclerotic heart disease of native coronary artery without angina pectoris; Z79.899 Other long term (current) drug therapy; Z79.82 Long term (current) use of aspirin; J45.40 Moderate persistent asthma, uncomplicated; Z79.51 Long term (current) use of inhaled steroids; Z95.5 Presence of coronary angioplasty implant and graft
CPT/HCPCS: 71045; 80048; 84484; 85025; 93005; 99284; A4216

== ENCOUNTER → 2023-09-23 | Outpatient (CLI) | payer MEDICARE, SELFPAY ==
--- NOTE | 2023-09-23 16:31 | STRESSREP_ITS ---
Stress Test Report Exercise myocardial perfusion stress test. 73-year-old man with a history of chest pain Stress protocol: Resting EKG demonstrates normal sinus rhythm with a rate of 65 bpm resting blood pressure is 110/78 mmHg. The patient exercised according to the regular Too protocol for a total duration of 7 minutes attaining a maximum heart rate of 144 bpm which was 99% of maximum predicted heart rate; the maximum workload was 10.1 metabolic equivalents. At rest there were no ST or T wave changes noted to suggest ischemia and at peak exercise upsloping ST changes only were noted which did not meet the criteria for ischemia. No clinical angina was noted the test was terminated due to the target heart rate being achieved/fatigue. The peak b lood pressure was 162/88 mmHg. Rate-pressure product was 20,500. Myocardial perfusion protocol. 12.0 mCi of technetium 99m sestamibi was injected at rest. The patient exercised according to regular Too protocol for total duration of 7 minutes and at peak exercise 36.0 mCi of technetium 99m sestamibi was injected stress images were obtained stress and rest images were reconstructed in comparing the short axis vertical long and horizontal long axis. Gated images were also obtained. Perfusion SPECT analysis: Review of the stress images demonstrate normal uptake of tracer noted in all areas of the myocardium. The resting images similarly demonstrate normal uptake of tracer noted in all areas of the myocardium. No areas of reversibility are noted to suggest ischemia no previous infarct was noted. Gated SPECT analysis: The gated ejection fraction is 63%. Conclusion: Normal exercise myocardial perfusion stress test at a high workload Preserved ejection fraction.
== END | disposition home or self-care (01) ==
LOC: CVS 06:02
PROVIDERS: PCP Family Medicine; Referring Provider Internal Medicine Cardiovascular Disease; Visit Provider Internal Medicine Cardiovascular Disease
DX: I25.10 Atherosclerotic heart disease of native coronary artery without angina pectoris (principal); Z95.5 Presence of coronary angioplasty implant and graft
CPT/HCPCS: 78452; 93017; A9500; A4216

== ENCOUNTER → 2023-10-18 | Outpatient (CLI) | payer MEDICARE, SELFPAY ==
--- NOTE | 2023-10-18 14:33 | PFTCOMP_ITS ---
COMPLETE PULMONARY FUNCTION TEST INTERPRETATION Brief HPI: Patient is a 73-year-old male, currently under the care of myself, who presents to [facility] for complete pulmonary function tests secondary to diagnosis of asthma. Respiratory therapist reports good effort and reproducible results. Interpretation: Forced expiration spirometry shows no large airways obstructive ventilatory defect with an FEV1 of 113% predicted. There is no significant bronchodilator response by strict ATS criteria. Spirograms are of good quality and plateau normally. The respiratory flow volume loop shows a normal pattern. Lung volumes by body plethysmography show a normal total lung capacity at 7.22 L, 96% predicted. All other lung volumes are within normal limits. Diffusion capacity by carbon monoxide is decreased at 65% predicted. The airway resistance is normal. Compared to previous pulmonary function tests from 09/06/2017, there is been a significant decrease in DLCO. Impression: Isolated reduction diffusion capacity in a pattern consistent with a pulmonary vascular disorder, with worsening compared to 2017
== END | disposition home or self-care (01) ==
LOC: PSN 09:48
PROVIDERS: PCP Family Medicine; Referring Provider Internal Medicine Critical Care Medicine; Visit Provider Internal Medicine Critical Care Medicine
DX: J45.40 Moderate persistent asthma, uncomplicated (principal)
CPT/HCPCS: 94060; 94726; 94729

== ENCOUNTER → 2024-03-14 | Outpatient (CLI) | payer MEDICARE, SELFPAY ==
--- NOTE | 2024-03-14 08:52 | ECHOD_ITS ---
Reason For Study: PHTN Procedure This was a 2D Doppler, Color Flow transthoracic echocardiogram. Exam performed in department. Left Ventricle Normal LV size. Left ventricular systolic function is normal. The estimated ejection fraction is 60 %. Stage 1 diastolic dysfunction. No regional wall motion abnormalities noted. Right Ventricle Normal RV size. Normal systolic function. Atria Normal left atrium. Normal right atrium. Bubble contrast study negative for right to left interatrial shunt. Mitral Valve Normal mitral valve. Tricuspid Valve Normal tricuspid valve. Mild tricuspid valve insufficiency. Pulmonary artery systolic pressure is 26 mmHg. Aortic Valve Normal aortic valve. Trisinus/trileaflet aortic valve. Pulmonic Valve Normal pulmonic valve. Great Vessels Normal aortic root. The pulmonary artery is normal size. Normal inferior vena cava. Pericardium/Pleural No pericardial effusion. MMode/2D Measurements & Calculations LVIDd: 4.6 cm IVSd: 0.92 cm Ao root diam: 3.5 cm LVIDs: 2.6 cm LVPWd: 0.88 cm RVDd: 4.6 cm FS: 43.6 % LAV(MOD-bp): 33.5 ml LVAd ap4: 26.3 cm2 SV(MOD-sp4): 51.4 ml LAV(MOD-bp) Indexed: 16.2 ml/m2 LVLd ap4: 7.0 cm LAV(MOD-sp2): 43.2 ml EDV(MOD-sp4): 81.7 ml LAV(MOD-sp4): 24.1 ml EDV(sp4-el): 84.3 ml LVAs ap4: 14.4 cm2 LVLs ap4: 5.8 cm ESV(MOD-sp4): 30.3 ml ESV(sp4-el): 30.5 ml EF(MOD-sp4): 62.9 % EF(sp4-el): 63.9 % SV(sp4-el): 53.8 ml LA A4 area: 12.1 cm2 LA dimension(2D): 2.9 cm RA A4 area: 15.5 cm2 TAPSE: 2.4 cm Time Measurements MV dec time: 0.37 sec Doppler Measurements & Calculations MV E max yfn: 36.6 cm/sec Lat Peak E' Yfn: 8.3 cm/sec Med Peak E' Yfn: 6.8 cm/sec MV A max yfn: 52.1 cm/sec E/E' lat: 4.4 E/E' med: 5.4 MV E/A: 0.70 Ao V2 max: 111.7 cm/sec LV V1 max: 100.6 cm/sec MV dec slope: 98.4 cm/sec2 Ao max P.0 mmHg LV V1 max P.0 mmHg Ao V2 mean: 81.1 cm/sec Ao mean P.9 mmHg Ao V2 VTI: 23.5 cm PA V2 max: 120.9 cm/sec TR max yfn: 244.7 cm/sec PA V2 mean: 99.7 cm/sec TR max P.9 mmHg PA V2 VTI: 24.9 cm ECHO/Echo Complete Interpretation Summary Normal LV size. Left ventricular systolic function is normal. The estimated ejection fraction is 60 %. Stage 1 diastolic dysfunction. Bubble contrast study negative for right to left interatrial shunt. Pulmonary artery systolic pressure is 26 mmHg. Ordering Physician: Too Street Referring Physician: Sim Weir Performed By: Lauren Burns, URSZULA, RVT
== END | disposition home or self-care (01) ==
LOC: CVS 08:51
PROVIDERS: PCP Family Medicine; Referring Provider Internal Medicine Critical Care Medicine; Visit Provider Internal Medicine Critical Care Medicine
DX: R06.09 Other forms of dyspnea (principal)
CPT/HCPCS: 93306; A4216

== ENCOUNTER 2024-12-11 09:45 | Emergency (ER) | payer MEDICARE, SELFPAY ==
[2024-12-11 09:45] VITALS: BP 140/93; PULSE 47; RESP 14; TEMP 36.2; O2SAT 90; O2SAT 93
--- NOTE | 2024-12-11 11:00 | RAD_ITS ---
STUDY: X-RAY CHEST REASON FOR EXAM: Male, 74 years old. Chest pain TECHNIQUE: PA and lateral views of the chest. COMPARISON: Comparison is made with prior study dated September 22, 2023. FINDINGS: EKG electrodes are seen. The lungs are clear and expanded. There is no demonstrated pleural abnormality. Normal size heart. Normal mediastinum and jovani. Normal visualized pulmonary arteries. There is atherosclerotic tortuosity of the aortic arch and descending thoracic aorta. There are diffuse degenerative changes of the visualized thoracic spine. Normal visualized ribs, clavicles, and shoulders. There is no demonstrated abnormality of the visualized soft tissue structures of the upper abdomen. RAD/Chest PA and Lateral IMPRESSION: No acute abnormality is seen. Electronically Signed: Kin Beasley MD at 11:10 EST ,
[2024-12-11 11:01] LABS: Absolute Lymphocyte Count 0.72 X10^3/uL (0.83-4.51); Basophil# 0.02 X10^3/uL; Basophil% 0.3 % (0-1); Eosinophil# 0.07 X10^3/uL; Eosinophils% 1.1 % (0-5); Hematocrit 47.5 % (40-54); Hemoglobin 15.7 g/dL (13.0-16.5); Lymphocyte # 0.72 X10^3/ul (0.83-4.51); Lymphocyte % 11.2 % (19-41); Mean Corp Hgb Conc 33.1 g/dL (32-36); Mean Corpuscular Hgb 29.6 pg (27.0-32.0); Mean Corpuscular Volume 89.6 fL (80-94); Monocyte# 0.64 X10^3/uL; NRBC Flagged by Analyzer 0 % (0-5); Neutrophil # 4.95 X10^3/uL (2.7-7.7); Neutrophil % 77.1 % (47-70); Platelet Count 175 K/mm3 (150-450); RBC Distribution Width CV 13.4 % (11.6-14.6); RBC Distribution Width SD 44.4 fl (35.1-43.9); White Blood Count 6.4 K/mm3 (4.4-11.0)
[2024-12-11 11:14] LABS: D-Dimer Quantitative (DVT/PE) 0.43 FEU/ug/m (0.27-0.49)
--- NOTE | 2024-12-11 11:15 | EDS_ITS ---
HPI History of Present Illness Chief Complaint: Chest Pain Narrative Narrative: Chief complaint and HPI: Episodic chest pain. 74-year-old gentleman with past medical history of HTN, CAD status post PCI, HLD, asthma presents for evaluation of episodic chest pain. Patient states for the past several years he has been having episodic chest pain that is sharp/ electrical shock in nature. He states that it last several seconds and then disappears. He states after that he has soreness in his muscles on the left side. He follows with Dr. Ochoa for cardiology. States that he saw him in the past for this and was told that maybe he is possibly missing a beat. Patient states that he developed this chest pain over the weekend while walking [place] from [place] barn. He states he was not doing anything exertional. He states it resolved in a couple seconds. He states last night something awoken from sleep which she thinks was the same thing. Currently denying this chest pain. Denies any fever, chills, shortness of breath, URI symptoms, cough, abdominal pain, nausea, vomiting. On chart review patient had a stress test in August 2023 that showed an EF of 63% without ischemia. His last echocardiogram was in February 2024 again with normal EF. Review of systems: See HPI Medications: As listed on the chart Allergies: As listed on the chart PFSH: Per chart Vital signs: As listed on the chart. Reviewed. 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 Atherosclerotic heart disease of [place] coronary artery without angina pectoris Essential (primary) hypertension Incomplete left bundle branch block Sinus congestion Hyperlipidemia Asthma, moderate persistent [place]' lung disease Left inguinal hernia Dyspnea on exertion Home Medications ?Medication ?Instructions ?Recorded ?Last Taken ?Type aspirin 81 mg tablet,delayed 81 mg PO DAILY@0800 02/28/21 Unknown Rx release cetirizine 10 mg capsule (Zyrtec) 10 mg PO DAILY itching 04/12/23 Unknown History lisinopril 10 mg tablet 10 mg PO DAILY #90 tabs 01/31/24 Unknown Rx fluticasone furoate 200 1 inh inhalation QDAY #60 ea 03/23/24 Unknown Rx mcg-vilanterol 25 mcg/dose inhalation powder (Breo Ellipta) metoprolol succinate 25 mg 12.5 mg (1/2 x 25 mg) PO QHS #45 09/17/24 Unknown Rx tablet,extended release 24 hr tabs rosuvastatin 10 mg tablet 10 mg PO .QOD #45 tabs 11/13/24 Unknown Rx Allergy/AdvReac Type Severity Reaction Status Date / Time atorvastatin AdvReac Intermediate myalgias Verified 12/11/24 09:46 montelukast (From Singulair) AdvReac nightmares Verified 12/11/24 09:46 Family History Father CAD (coronary artery disease) Myocardial infarction, Onset Age: 65 Mother COPD (chronic obstructive pulmonary disease) Uncle Sudden cardiac Surgical History History of coronary artery stent placement (02/27/21) Social History Smoking Status: Former smoker second hand exposure: No alcohol intake: current alcohol intake frequency: holidays/special occasions only Alcohol type: beer substance use type: does not use caffeine: No what type of physical activity do you participate in: walking frequency: daily duration: other seatbelt use: always do you feel safe at home: Yes EXAM Physical Exam Const Vital Signs: 12/11/24 09:45 12/11/24 09:45 12/11/24 10:28 Temperature 97.2 F L Temperature Source Temporal Pulse Rate 47 L Respiratory Rate 14 Respiratory Effort Normal Non-Labored Blood Pressure 140/93 H Blood Pressure Mean 108 Pulse Ox 90 93 Oxygen Delivery Method Room Air Room Air 12/11/24 12:05 12/11/24 13:15 Temperature Temperature Source Pulse Rate 60 59 L Respiratory Rate 12 12 Respiratory Effort Blood Pressure 121/92 H 123/92 H Blood Pressure Mean 101 102 Pulse Ox 96 97 Oxygen Delivery Method Room Air Room Air MDM MDM MDM Narrative Medical decision making narrative: 74-year-old gentleman with past medical history of HTN, CAD status post PCI, HLD, asthma presents for evaluation of episodic chest pain. Currently denying chest pain. Chest pain is described as shocklike and has been ongoing for several years. Differential diagnosis includes but is not limited to arrhythmia, electrolyte abnormality, pleurisy, musculoskeletal spasm suspect less likely. ACS, pneumonia, CHF PE. Cardiac workup ordered. EKG and chest x- ray reviewed see below. CBC without leukocytosis or anemia. D-dimer unremarkable. BMP without ELLIE. Troponin unremarkable x 2. BNP unremarkable. On reexamination patient is still asymptomatic without chest pain. At this point in time no clear etiology to explain patient's chest pain however it is atypical as it is sharp and shooting like in nature. He states that he notices it more when he is out in the cold as well as since his asthma maintenance inh aler was changed. His pain may be secondary to pleurisy versus asthma flare. He was told to follow-up with his PCP. Cardiology as needed. He was updated of all the results and the plan. Return precautions explained. He confirmed understanding the plan. Patient stable to discharge home. EKG: Interpreted by me/EM physician: EKG shows sinus bradycardia with nonspecific ST changes. This is similar to previous EKG. Heart rate 58. Diagnostic: Interpreted by me/EM physician: Chest x-ray without pneumonia, effusion, cardiomegaly, pneumothorax Impression: 1. Episodic atypical chest pain Lab Data Labs: Laboratory Results - last 24 hr 12/11/24 12/11/24 10:20 13:11 WBC 6.4 RBC 5.30 Hgb 15.7 Hct 47.5 MCV 89.6 MCH 29.6 MCHC 33.1 RDW Std Deviation 44.4 H RDW Coeff of [place] 13.4 Plt Count 175 MPV 9.0 Immature Gran % (Auto) 0.300 Neut % (Auto) 77.1 H Lymph % (Auto) 11.2 L [place] % (Auto) 10.0 Eos % (Auto) 1.1 Baso % (Auto) 0.3 Absolute Neuts (auto) 5.0 Absolute Lymphs (auto) 0.72 L Nucleated RBC % 0 D-Dimer Quant (PE/DVT) 0.43 Sodium 141 Potassium 3.8 Chloride 109 H Carbon Dioxide 29.0 Anion Gap 3 L BUN 20 H Creatinine 0.97 Estim Creat Clear Calc 2.52 Est GFR (MDRD) Af Amer 97 Est GFR (MDRD) Non-Af 80 BUN/Creatinine Ratio 20.7 H Glucose 76 Calcium 9.2 Troponin I High Sens < 3 L 4 B-Natriuretic Peptide 31.8 Radiography Diagnostic Testing: Clinical Impression(s) from Imaging Studies Chest X-Ray 12/11/24 11:00 IMPRESSION: No acute abnormality is seen. Electronically Signed: Kin Beasley MD at 11:10 EST , Discharge Plan Triage Chief Complaint: Chest Pain ED Provider: González Alarcon Dx/Rx/DC Orders Clinical Impression: Chest pain of uncertain etiology Instructions: Chest Pain [facility] Ch Prescriptions: No Action Zyrtec 10 mg capsule 10 mg PO DAILY aspirin 81 MG tablet 81 mg PO DAILY@0800 0RF lisinopril 10 mg tablet 10 mg PO DAILY Qty: 90 3RF fluticasone furoate-vilanterol [Breo Ellipta] 200-25 mcg/dose blister with device 1 inh inhalation QDAY Qty: 60 6RF Rx Instructions: after inhalation, rinse mouth with water and spit out; do not swallow metoprolol succinate 25 mg tablet extended release 24 hr 12.5 mg PO QHS Qty: 45 3RF rosuvastatin 10 mg tablet 10 mg PO .QOD Qty: 45 3RF Primary Care Provider: Sim Weir Referrals: Sim Weir MD [Primary Care Provider] - 3-5 Days Activity Restrictions/Additional Instructions: Follow-up with your primary care physician. Follow-up with cardiology. Return back to the ED if symptoms change or worsen. Print Language: Citizen [place] Disposition Disposition: Home, Self Care
[2024-12-11 11:26] LABS: Anion Gap 3 (5-15); BUN 20 mg/dL (7-18); BUN/Creat Ratio 20.7 RATIO (10-20); Calcium,Total 9.2 mg/dL (8.5-10.1); Chloride 109 mmol/L (98-107); Creatinine, Serum 0.97 mg/dL (0.70-1.30); EST Glomerular Filtration Rate 80 mL/min (>60); Est Glom Filt Rate - Afr Amer 97 mL/min (>60); Estimated Creatinine Clearance 2.52 ml/min; Glucose 76 mg/dL (74-106); Potassium 3.8 mmol/L (3.5-5.1); Sodium Level 141 mmol/L (136-145); Troponin-I HS (w/2H Reflex) < 3 pg/mL (3.0-78.0)
[2024-12-11 11:30] LABS: BNP,B-Type NATRIURETIC PEPTIDE 31.8 pg/mL (0-100)
[2024-12-11 12:05] VITALS: BP 121/92; PULSE 60; RESP 12; O2SAT 96
[2024-12-11 12:56] LABS: Reflex Troponin-HS? (from REC) Y
[2024-12-11 13:15] VITALS: BP 123/92; PULSE 59; RESP 12; O2SAT 97
[2024-12-11 13:34] LABS: Troponin-I HS 4 pg/mL (3.0-78.0)
== END 2024-12-11 14:19 | disposition home or self-care (01) ==
PROVIDERS: Emergency Provider Surgery; PCP Family Medicine; Visit Provider Surgery
DX: R07.89 Other chest pain (principal); Z87.891 Personal history of nicotine dependence; I25.10 Atherosclerotic heart disease of native coronary artery without angina pectoris; I10 Essential (primary) hypertension; E78.5 Hyperlipidemia, unspecified; Z79.82 Long term (current) use of aspirin; Z79.899 Other long term (current) drug therapy; J45.909 Unspecified asthma, uncomplicated; Z79.51 Long term (current) use of inhaled steroids
CPT/HCPCS: 71046; 80048; 83880; 84484; 85025; 85379; 93005; 99284; A4216

== ENCOUNTER → 2025-09-04 | Outpatient (CLI) | payer MEDICARE, SELFPAY ==
--- NOTE | 2025-09-04 08:48 | CPS ---
Taught PEP Therapy device and controlled coughing. Pt voiced understanding.
== END | disposition home or self-care (01) ==
LOC: PSN 08:23
PROVIDERS: PCP Family Medicine; Referring Provider Nurse Practitioner Family; Visit Provider Nurse Practitioner Family
DX: J45.40 Moderate persistent asthma, uncomplicated (principal)
CPT/HCPCS: 94060; 94667; 94726; 94729